=== PATIENT | male | born 1960 | race Caucasian/White ===

== ENCOUNTER 2017-03-17 11:52 | Emergency (ER) | payer OTHER ==
[~2017-03-17] VITALS: Ht 193 cm; Wt 99.8 kg
[2017-03-17 11:52] VITALS: BP_SYST 71
--- NOTE | 2017-03-17 11:52 | NUR ---
IMMEDIATELY BROUGHT BACK TO BED #5 AND TRIAGED. REPORT GIVEN TO MCKAYLA AND DR BROOKS
--- NOTE | 2017-03-17 11:55 | NUR ---
ER at bedside examining patient.
--- NOTE | 2017-03-17 11:58 | NUR ---
PT REPORTS SI PRIOR TO ED ARRIVAL.PT AFTER SPEAKING W/ PT ADMITS TO SEEKING PSYCHIATRIC HELP AT [facility].PT H/O BIPOLAR DEPRESSION. PT IS HOWVER HYPOTENSIVE AND TACHYCARDIAC. PT PLACED ON MONITOR IV STARTED AND FLUID STARTED.
[2017-03-17] MEDS ORDERED: NACL 0.9% 1,000 ML IV ONE ×2 (12:00→12:45)
[2017-03-17 12:26] LABS: BASOPHILS # (AUTO) 0.1 K/uL (0.0-0.2); BASOPHILS % (AUTO) 1.7 % (0.0-2.0); EOSINOPHILS # (AUTO) 0.1 K/uL (0.0-0.4); EOSINOPHILS % (AUTO) 1.3 % (0.0-4.0); HEMATOCRIT 41.8 % (36-54); HEMOGLOBIN 13.9 g/dL (14.0-18.0); LYMPHOCYTES # (AUTO) 1.5 K/uL (1.0-5.5); LYMPHOCYTES % (AUTO) 17.4 % (20.5-51.5); MEAN CORPUSCULAR HEMOGLOBIN 28 pg (27-31); MEAN CORPUSCULAR HGB CONC 33 % (32-36); MEAN CORPUSCULAR VOLUME 85 fL (79.0-98.0); MONOCYTES # (AUTO) 0.5 K/uL (0.0-1.0); MONOCYTES % (AUTO) 6.2 % (1.7-9.3); NEUTROPHILS # (AUTO) 6.4 K/uL (1.8-7.7); NEUTROPHILS % (AUTO) 73.4 % (40.0-70.0); PLATELET COUNT (AUTO) 313 K/uL (130-430); RED BLOOD CELL COUNT(AUTO) 4.95 MIL/uL (4.2-6.2); RED CELL DISTRIBUTION WIDTH 12.6 % (9.0-15.0); WHITE BLOOD COUNT (AUTO) 8.6 K/uL (4.8-10.8)
[2017-03-17 12:29] LABS: CALCIUM 9.3 mg/dL (8.4-11.0); CREATININE 1.68 mg/dL (0.55-1.30); POTASSIUM 3.8 mmol/L (3.5-5.1)
--- NOTE | 2017-03-17 12:30 | NUR ---
PT REPORTS DIZZINESS RESOLVED AND PT REQUIRING MEAL TRAY
[2017-03-17 12:34] LABS: ALBUMIN 4.4 g/dL (3.4-4.8); TOTAL BILIRUBIN 0.5 mg/dL (0.0-1.0); TOTAL PROTEIN, SERUM 7.3 g/dL (6.4-8.3)
--- NOTE | 2017-03-17 13:30 | NUR ---
PT GIVEN SAND AND JUICE TOLERATED WELL.
--- NOTE | 2017-03-17 14:30 | NUR ---
PT TOLERATED LUCH TRAY X 2. PT SLEEPING EASILY AROUSABLE.PT COOPERATIVE WHILE AWAKE.CONTINUING TO MONITOR
[2017-03-17] MEDS ORDERED: LORazepam 2 MG/ML VIAL (FOR ER USE) IVP ONE (16:15)
--- NOTE | 2017-03-17 17:00 | NUR ---
PT MED ICATED FOR ANXIETY.PT TOLERTAED WELL.
--- NOTE | 2017-03-17 17:55 | NUR ---
Patient to be transferred to [facility]. Is being transferred due to higher level of care. Receiving facility has accepting physician and available space. ER physician has signed transfer form. Patient or responsible green party has agreed to transfer and signed form. Patient belongings inventoried and will be sent with patient. Copy of nursing notes, lab reports, EKG, Physicians Orders and X-rays to be sent with patient. Report called to MARVA at receiving facility. Receiving physician is . [facility] been [facility] for transfer. [facility] FOR TRANSFER.
[2017-03-17 18:00] VITALS: BP_SYST 128
== END 2017-03-17 18:00 ==
LOC: SED 11:52
DX: F32.9 Major depressive disorder, single episode, unspecified (principal); R45.851 Suicidal ideations; E86.0 Dehydration; F10.10 Alcohol abuse, uncomplicated; I10 Essential (primary) hypertension; F41.9 Anxiety disorder, unspecified; Y90.3 Blood alcohol level of 60-79 mg/100 ml; Z96.642 Presence of left artificial hip joint; Z51.81 Encounter for therapeutic drug level monitoring
CPT/HCPCS: 36415; 71010; 80053; 83605; 84484; 85025; 85610; 85730; 87040; 93005; 96361; 96374; 99285; G0481; G0482; J2060; J7030

== ENCOUNTER 2017-05-07 01:53 | Emergency (ER) | payer OTHER ==
[~2017-05-07] VITALS: Ht 193 cm; Wt 99.8 kg
[2017-05-07 01:55] VITALS: BP_SYST 150
[2017-05-07] MEDS ORDERED: NACL 0.9% 1,000 ML IV ONE (01:57)
[2017-05-07] MEDS ORDERED: ONDANSETRON HCL 4 MG/2 ML VIAL IVP ONE (02:00)
[2017-05-07 03:08] LABS: CALCIUM 9.3 mg/dL (8.4-11.0); CREATININE 1.29 mg/dL (0.55-1.30); POTASSIUM 3.9 mmol/L (3.5-5.1)
[2017-05-07 03:10] LABS: BASOPHILS % (AUTO) 1.4 % (0.0-2.0); EOSINOPHILS # (AUTO) 0.1 K/uL (0.0-0.4); EOSINOPHILS % (AUTO) 1.2 % (0.0-4.0); HEMATOCRIT 42.2 % (36-54); HEMOGLOBIN 13.8 g/dL (14.0-18.0); LYMPHOCYTES # (AUTO) 2.4 K/uL (1.0-5.5); MEAN CORPUSCULAR HEMOGLOBIN 27 pg (27-31); MEAN CORPUSCULAR HGB CONC 33 % (32-36); MEAN CORPUSCULAR VOLUME 84 fL (79.0-98.0); MONOCYTES # (AUTO) 0.6 K/uL (0.0-1.0); NEUTROPHILS # (AUTO) 6.7 K/uL (1.8-7.7); NEUTROPHILS % (AUTO) 67.4 % (40.0-70.0); PLATELET COUNT (AUTO) 333 K/uL (130-430); RED BLOOD CELL COUNT(AUTO) 5.05 MIL/uL (4.2-6.2); WHITE BLOOD COUNT (AUTO) 9.9 K/uL (4.8-10.8)
[2017-05-07 03:11] LABS: BASOPHILS # (AUTO) 0.1 K/uL (0.0-0.2)
[2017-05-07 03:12] LABS: ALBUMIN 4.5 g/dL (3.4-4.8); TOTAL BILIRUBIN 0.4 mg/dL (0.0-1.0); TOTAL PROTEIN, SERUM 7.7 g/dL (6.4-8.3)
[2017-05-07 03:43] LABS: BILIRUBIN,URINE NEGATIVE (NEGATIVE); BLOOD, URINE NEGATIVE (NEGATIVE); CLARITY/URINE CLEAR (CLEAR); COLOR,URINE YELLOW (YELLOW); GLUCOSE,URINE NEGATIVE (NEGATIVE); KETONES,URINE NEGATIVE (NEGATIVE); LEUKOCYTE ESTERASE ,URINE NEGATIVE (NEGATIVE); NITRITE, URINE NEGATIVE (NEGATIVE); PH,URINE 7.5 (5.0-8.0); PROTEIN URINE NEGATIVE (NEGATIVE); UROBILINOGEN,URINE 0.2 (0.2-1.0)
[2017-05-07 04:15] VITALS: BP_SYST 136
== END 2017-05-07 04:15 | disposition home or self-care (01) ==
LOC: SED 01:53
DX: T67.5XXA Heat exhaustion, unspecified, initial encounter (principal); E86.0 Dehydration; F41.9 Anxiety disorder, unspecified; I10 Essential (primary) hypertension; X58.XXXA Exposure to other specified factors, initial encounter; Y93.01 Activity, walking, marching and hiking
CPT/HCPCS: 36415; 80053; 81003; 82150; 82550; 83690; 84484; 85025; 85610; 85730; 96374; 99284; J2405; J7030

== ENCOUNTER 2017-06-11 02:38 | Emergency (ER) | payer OTHER ==
[~2017-06-11] VITALS: Ht 193 cm; Wt 96.2 kg
[2017-06-11 02:38] VITALS: BP_SYST 164
[2017-06-11 04:05] LABS: BILIRUBIN,URINE NEGATIVE (NEGATIVE); BLOOD, URINE NEGATIVE (NEGATIVE); CLARITY/URINE CLEAR (CLEAR); COLOR,URINE YELLOW (YELLOW); GLUCOSE,URINE NEGATIVE (NEGATIVE); KETONES,URINE TRACE (NEGATIVE); LEUKOCYTE ESTERASE ,URINE NEGATIVE (NEGATIVE); NITRITE, URINE NEGATIVE (NEGATIVE); PH,URINE 5.5 (5.0-8.0); PROTEIN URINE NEGATIVE (NEGATIVE); UROBILINOGEN,URINE 0.2 (0.2-1.0)
[2017-06-11 04:13] LABS: HEMOGLOBIN 15.6 g/dL (14.0-18.0); RED BLOOD CELL COUNT(AUTO) 5.49 MIL/uL (4.2-6.2); WHITE BLOOD COUNT (AUTO) 7.8 K/uL (4.8-10.8)
[2017-06-11 04:14] LABS: HEMATOCRIT 47.1 % (36-54); MEAN CORPUSCULAR HEMOGLOBIN 28 pg (27-31); MEAN CORPUSCULAR HGB CONC 33 % (32-36); MEAN CORPUSCULAR VOLUME 86 fL (79.0-98.0); NEUTROPHILS % (AUTO) 74.1 % (40.0-70.0); PLATELET COUNT (AUTO) 303 K/uL (130-430); RED CELL DISTRIBUTION WIDTH 13.7 % (9.0-15.0)
[2017-06-11 04:15] LABS: BASOPHILS % (AUTO) 0.3 % (0.0-2.0); EOSINOPHILS # (AUTO) 0.1 K/uL (0.0-0.4); EOSINOPHILS % (AUTO) 0.7 % (0.0-4.0); LYMPHOCYTES # (AUTO) 1.6 K/uL (1.0-5.5); LYMPHOCYTES % (AUTO) 20.9 % (20.5-51.5); MONOCYTES # (AUTO) 0.3 K/uL (0.0-1.0); NEUTROPHILS # (AUTO) 5.8 K/uL (1.8-7.7)
[2017-06-11 04:15] LABS: ANION GAP 8 (5-15); CALCIUM 8.4 mg/dL (8.4-11.0); CHLORIDE 106 mmol/L (98-107); CREATININE 0.92 mg/dL (0.55-1.30); GLUCOSE 98 mg/dL (70-99); POTASSIUM 4.1 mmol/L (3.5-5.1); SODIUM SERUM 144 mmol/L (136-145); UREA NITROGEN, BLOOD 16 mg/dL (8-21)
[2017-06-11 04:19] LABS: ALANINE AMINOTRANSFERASE 30 U/L (12-78); ALBUMIN 4.2 g/dL (3.4-4.8); ALCOHOL, BLOOD 193 mg/dL (<10); ASPARTATE AMINOTRANSFERASE 21 U/L (10-37); CREATINE KINASE, TOTAL 130 U/L (39-308); TOTAL BILIRUBIN 0.3 mg/dL (0.0-1.0); TOTAL PROTEIN, SERUM 7.8 g/dL (6.4-8.3)
[2017-06-11 04:19] LABS: BARBITURATE, URINE NEGATIVE (NEG <=200); BENZODIAZEPINE, URINE NEGATIVE (NEG <=150); CANNABINOID, URINE NEGATIVE (NEG <=50); COCAINE, URINE NEGATIVE (NEG <=150); METHAMPHETAMINES SCREEN,URINE NEGATIVE (NEG <=500); OPIATE, URINE NEGATIVE (NEG <=100); PHENCYCLIDINE SCREEN,URINE NEGATIVE (NEG <=25); UR TRICYCLIC ANTIDEPRESSANTS POSITIVE (NEG <=300); URINE AMPHETAMINE POSITIVE (NEG <=500); URINE METHADONE NEGATIVE (NEG <=200); URINE OXYCODONE SCREEN NEGATIVE (NEG <=100); URINE PROPOXYPHENE SCREEN NEGATIVE (NEG <=300)
[2017-06-11 04:20] LABS: PROTHROMBIN TIME 10.9 SECS (9.5-12.5)
[2017-06-11 04:25] LABS: ACETAMINOPHEN < 1 ug/mL (1-30); GFR AFRICAN AMERICAN 109 mL/min (>90)
[2017-06-11 04:34] LABS: SALICYLATE 3 mg/dL (3-30)
[2017-06-11] MEDS ORDERED: ONDANSETRON HCL 4 MG/2 ML VIAL IVP ONE (06:45)
[2017-06-11] MEDS ORDERED: ALPRAZolam 0.25 MG TABLET PO ONE ×2 (11:15→19:45)
[2017-06-12 11:40] VITALS: BP_SYST 140
== END 2017-06-12 11:40 ==
LOC: SED 02:38
DX: F32.9 Major depressive disorder, single episode, unspecified (principal); R45.851 Suicidal ideations; F10.129 Alcohol abuse with intoxication, unspecified; F19.10 Other psychoactive substance abuse, uncomplicated; F41.9 Anxiety disorder, unspecified; I10 Essential (primary) hypertension; Z59.0 Homelessness; Z96.642 Presence of left artificial hip joint
CPT/HCPCS: 36415; 80053; 80307; 81003; 82550; 84484; 85025; 85610; 85730; 96374; 99285; G0480; G0481; G0482; J2405

== ENCOUNTER 2017-06-23 17:22 | Emergency (ER) | payer OTHER ==
[~2017-06-23] VITALS: Ht 175.3 cm; Wt 99.8 kg
--- NOTE | 2017-06-23 17:24 | NUR ---
Patient to ER bed 04 to gown for evaluation. Side rails up. Report given to Tunde
[2017-06-23 17:25] VITALS: BP_SYST 117
--- NOTE | 2017-06-23 17:33 | NUR ---
Patient,awake,alert and oriented x 4, brought in by ambulance for ETOH intoxication from [facility]. Upon arrival, patient calm and cooperative, steady gait, complaining of ETOH intoxication states, "I was discharged from [facility] this morning, missed my AA meeting and drank 1L of vodka." He then states he walked himself to the [facility] after drinking because he didn't feel right and guilty about relapsing. The patient denies SI, HI and AVH at this time. No nausea, vomitting and diarrhea at this time. No other complaints/injuries per patient, none noted.
--- NOTE | 2017-06-23 17:38 | NUR ---
Dr. Gonsalez at bedside examining patient. Updated on patient condition.
[2017-06-23 17:42] LABS: BASOPHILS % (AUTO) 0.6 % (0.0-2.0); EOSINOPHILS # (AUTO) 0.1 K/uL (0.0-0.4); EOSINOPHILS % (AUTO) 0.9 % (0.0-4.0); HEMATOCRIT 39.8 % (36-54); HEMOGLOBIN 13.3 g/dL (14.0-18.0); LYMPHOCYTES # (AUTO) 1.8 K/uL (1.0-5.5); LYMPHOCYTES % (AUTO) 22.5 % (20.5-51.5); MEAN CORPUSCULAR HEMOGLOBIN 29 pg (27-31); MEAN CORPUSCULAR HGB CONC 34 % (32-36); MEAN CORPUSCULAR VOLUME 86 fL (79.0-98.0); MONOCYTES # (AUTO) 0.5 K/uL (0.0-1.0); MONOCYTES % (AUTO) 5.7 % (1.7-9.3); NEUTROPHILS # (AUTO) 5.8 K/uL (1.8-7.7); NEUTROPHILS % (AUTO) 70.3 % (40.0-70.0); PLATELET COUNT (AUTO) 310 K/uL (130-430); RED BLOOD CELL COUNT(AUTO) 4.63 MIL/uL (4.2-6.2); RED CELL DISTRIBUTION WIDTH 13.7 % (9.0-15.0); WHITE BLOOD COUNT (AUTO) 8.2 K/uL (4.8-10.8)
[2017-06-23 17:56] LABS: CALCIUM 8.5 mg/dL (8.4-11.0); CREATININE 0.8 mg/dL (0.55-1.30); POTASSIUM 3.8 mmol/L (3.5-5.1)
[2017-06-23 18:00] LABS: TOTAL BILIRUBIN 0.2 mg/dL (0.0-1.0); TOTAL PROTEIN, SERUM 7.5 g/dL (6.4-8.3)
--- NOTE | 2017-06-23 18:18 | NUR ---
Pt transferred to room 05
--- NOTE | 2017-06-23 18:20 | NUR ---
Patient resting quietly. No acute distress noted. Vital signs within normal range.
--- NOTE | 2017-06-23 18:43 | NUR ---
Patient eloped as witness by staff.Patient ambulatory, no signs of distress, vss, chills, fever, or shortness of breath. Patient denied SI, HI and AVH.
[2017-06-23 18:45] VITALS: BP_SYST 115
== END 2017-06-23 18:45 | disposition left against medical advice (07) ==
LOC: SED 17:22
DX: F10.129 Alcohol abuse with intoxication, unspecified (principal); F43.10 Post-traumatic stress disorder, unspecified; F32.9 Major depressive disorder, single episode, unspecified; I10 Essential (primary) hypertension; F41.9 Anxiety disorder, unspecified; Z53.20 Procedure and treatment not carried out because of patient's decision for unspecified reasons
CPT/HCPCS: 36415; 80053; 85025; 99284; G0482

== ENCOUNTER 2017-08-15 14:17 | Inpatient (IN) | payer OTHER ==
[~2017-08-15] VITALS: Ht 190.5 cm; Wt 94.3 kg
[2017-08-15 14:22] VITALS: BP_SYST 103
[2017-08-15 14:53] LABS: HEMATOCRIT 33.7 % (36-54); HEMOGLOBIN 11.5 g/dL (14.0-18.0); MEAN CORPUSCULAR HEMOGLOBIN 29 pg (27-31); MEAN CORPUSCULAR HGB CONC 34 % (32-36); MEAN CORPUSCULAR VOLUME 86 fL (79.0-98.0); PLATELET COUNT (AUTO) 353 K/uL (130-430); RED BLOOD CELL COUNT(AUTO) 3.93 MIL/uL (4.2-6.2); RED CELL DISTRIBUTION WIDTH 13.8 % (9.0-15.0); WHITE BLOOD COUNT (AUTO) 25.4 K/uL (4.8-10.8)
[2017-08-15 14:57] LABS: ANION GAP 12 (5-15); CALCIUM 9.2 mg/dL (8.4-11.0); CHLORIDE 95 mmol/L (98-107); CREATININE 1.15 mg/dL (0.55-1.30); GFR AFRICAN AMERICAN 84 mL/min (>90); GLUCOSE 103 mg/dL (70-99); POTASSIUM 4.1 mmol/L (3.5-5.1); SODIUM SERUM 129 mmol/L (136-145); UREA NITROGEN, BLOOD 13 mg/dL (8-21)
[2017-08-15 15:01] LABS: ALANINE AMINOTRANSFERASE 25 U/L (12-78); ALBUMIN 3.4 g/dL (3.4-4.8); ASPARTATE AMINOTRANSFERASE 15 U/L (10-37); TOTAL BILIRUBIN 0.7 mg/dL (0.0-1.0)
[2017-08-15 15:03] LABS: ALCOHOL, BLOOD < 3 mg/dL (<10)
[2017-08-15 15:07] LABS: BILIRUBIN,URINE NEGATIVE (NEGATIVE); BLOOD, URINE 2+ (NEGATIVE); CLARITY/URINE SL CLOUDY (CLEAR); COLOR,URINE YELLOW (YELLOW); GLUCOSE,URINE NEGATIVE (NEGATIVE); KETONES,URINE NEGATIVE (NEGATIVE); LEUKOCYTE ESTERASE ,URINE 3+ (NEGATIVE); NITRITE, URINE POSITIVE (NEGATIVE); PROTEIN URINE 1+ (NEGATIVE)
[2017-08-15 15:13] LABS: BAND % (MANUAL) 8 % (0-6); BASOPHILS % (MANUAL) 0 % (0-2); EOSINOPHILS % (MANUAL) 0 % (0-7); LYMPHOCYTES % (MANUAL) 2 % (20-46); MONOCYTES % (MANUAL) 6 % (0-11)
[2017-08-15] MEDS ORDERED: IBUPROFEN 800 MG TABLET PO ONE (15:15)
[2017-08-15 15:17] LABS: RBC,URINE 20-50 /HPF (0-3)
[2017-08-15 15:18] LABS: BACTERIA,URINE MANY /HPF (None Seen); WBC,URINE >100 /HPF (0-3)
[2017-08-15 15:24] LABS: BARBITURATE, URINE NEGATIVE (NEG <=200); BENZODIAZEPINE, URINE POSITIVE (NEG <=150); COCAINE, URINE NEGATIVE (NEG <=150); METHAMPHETAMINES SCREEN,URINE POSITIVE (NEG <=500); URINE AMPHETAMINE POSITIVE (NEG <=500); URINE METHADONE NEGATIVE (NEG <=200)
[2017-08-15 15:25] LABS: CANNABINOID, URINE NEGATIVE (NEG <=50); OPIATE, URINE NEGATIVE (NEG <=100); PHENCYCLIDINE SCREEN,URINE NEGATIVE (NEG <=25); UR TRICYCLIC ANTIDEPRESSANTS NEGATIVE (NEG <=300); URINE OXYCODONE SCREEN NEGATIVE (NEG <=100); URINE PROPOXYPHENE SCREEN NEGATIVE (NEG <=300)
[2017-08-15] MEDS ORDERED: NACL 0.9% 1,000 ML IV ONE (16:00)
[2017-08-15] MEDS ORDERED: BENZ1TAB7 PO (16:27)
[2017-08-15] MEDS ORDERED: TRAZ-126 PO (16:27)
[2017-08-15] MEDS ORDERED: BUSP5TAB3 PO (16:27)
[2017-08-15] MEDS ORDERED: PIPERACILLIN/TAZO 4.5GM/DEX-IS 100 ML IV SCH (17:00)
[2017-08-15] MEDS ORDERED: ONDANSETRON HCL 4 MG/2 ML VIAL IVP PRN (17:00)
[2017-08-15] MEDS ORDERED: KETOROLAC TROMETHAMINE 15 MG VIAL IVP PRN (17:00)
[2017-08-15] MEDS ORDERED: LORazepam 1 MG TABLET PO PRN (17:00)
[2017-08-15 17:11] VITALS: BP_SYST 107
[2017-08-15] MEDS: NACL 0.9% 1,000 ML IV SCH (18:04)
[2017-08-15] MEDS: metroNIDAZOLE 500 mg/NS 100 ML IV SCH ×2 (18:05→22:50)
[2017-08-15] MEDS: traZODone HCL 50 MG TABLET (DESYREL) PO SCH (21:16)
[2017-08-16 00:22] VITALS: BP_SYST 116
[2017-08-16 04:15] VITALS: BP_SYST 108
[2017-08-16] MEDS: metroNIDAZOLE 500 mg/NS 100 ML IV SCH ×3 (05:33→21:17)
[2017-08-16] MEDS: NACL 0.9% 1,000 ML IV SCH ×3 (05:41→21:36)
[2017-08-16] MEDS: HYDROcodone/ACETAMIN 5-325 MG TAB (NORCO/ VICODIN) PO PRN ×2 (07:34→21:34)
[2017-08-16 08:00] VITALS: BP_SYST 125
[2017-08-16 08:02] LABS: FREE T4 (FREE THYROXINE) 1.1 ng/dl (0.8-1.5)
[2017-08-16 08:13] LABS: THYROID STIMULATING HORMONE 0.3 uIu/mL (0.34-4.82)
[2017-08-16 08:14] LABS: TOTAL IRON BIND. CAPACITY 249 ug/dL (250-450)
[2017-08-16] MEDS: busPIRone HCL 5 MG TABLET PO SCH (10:09)
[2017-08-16] MEDS: BENZTROPINE MESYLATE 1 MG TABLET PO SCH (10:09)
[2017-08-16 12:19] LABS: % FREE PSA 3.6 % (.); FREE PSA 0.1 ng/mL; PROSTATE SPECIFIC AG TOTAL 2.8 ng/mL (0.0-4.0)
[2017-08-16 12:40] VITALS: BP_SYST 121
[2017-08-16 16:24] VITALS: BP_SYST 108
[2017-08-16] MEDS: CHOLECALCIFEROL (VITAMIN D3) 2,000 UNIT TABLET PO SCH ×2 (17:27→21:33)
[2017-08-16] MEDS: MULTIVITS,CA,MINERALS/IRON/FA 1 TABLET PO SCH ×2 (17:27→21:33)
[2017-08-16 20:00] VITALS: BP_SYST 150
[2017-08-16] MEDS: traZODone HCL 50 MG TABLET (DESYREL) PO SCH (21:33)
[2017-08-17 01:14] VITALS: BP_SYST 118
[2017-08-17] MEDS: NACL 0.9% 1,000 ML IV SCH ×3 (04:33→20:03)
[2017-08-17 04:41] VITALS: BP_SYST 131
[2017-08-17 06:37] LABS: BASOPHILS % (AUTO) 0.3 % (0.0-2.0); EOSINOPHILS # (AUTO) 0.2 K/uL (0.0-0.4); EOSINOPHILS % (AUTO) 1.6 % (0.0-4.0); HEMATOCRIT 29.9 % (36-54); LYMPHOCYTES # (AUTO) 1.3 K/uL (1.0-5.5); LYMPHOCYTES % (AUTO) 8.8 % (20.5-51.5); MEAN CORPUSCULAR HEMOGLOBIN 29 pg (27-31); MEAN CORPUSCULAR HGB CONC 33 % (32-36); MEAN CORPUSCULAR VOLUME 87 fL (79.0-98.0); MONOCYTES # (AUTO) 0.8 K/uL (0.0-1.0); MONOCYTES % (AUTO) 5.4 % (1.7-9.3); NEUTROPHILS # (AUTO) 12.2 K/uL (1.8-7.7); PLATELET COUNT (AUTO) 238 K/uL (130-430); RED BLOOD CELL COUNT(AUTO) 3.46 MIL/uL (4.2-6.2); WHITE BLOOD COUNT (AUTO) 14.5 K/uL (4.8-10.8)
[2017-08-17 07:02] LABS: CALCIUM 9.1 mg/dL (8.4-11.0); CREATININE 0.84 mg/dL (0.55-1.30); POTASSIUM 3.5 mmol/L (3.5-5.1)
[2017-08-17] MEDS: metroNIDAZOLE 500 mg/NS 100 ML IV SCH ×3 (07:05→21:05)
[2017-08-17 08:00] VITALS: BP_SYST 124
[2017-08-17] MEDS: HYDROcodone/ACETAMIN 5-325 MG TAB (NORCO/ VICODIN) PO PRN ×2 (08:59→21:14)
[2017-08-17 09:01] LABS: NEUTROPHILS % (AUTO) 83.9 % (40.0-70.0)
[2017-08-17] MEDS: busPIRone HCL 5 MG TABLET PO SCH (09:20)
[2017-08-17] MEDS: MULTIVITS,CA,MINERALS/IRON/FA 1 TABLET PO SCH ×2 (09:20→21:05)
[2017-08-17] MEDS: CHOLECALCIFEROL (VITAMIN D3) 2,000 UNIT TABLET PO SCH ×2 (09:20→21:05)
[2017-08-17] MEDS: BENZTROPINE MESYLATE 1 MG TABLET PO SCH (09:20)
[2017-08-17] MEDS: SOD FERRIC GLUC COMPLEX/SUC 125 MG in NS 100 ML IV SCH (12:09)
[2017-08-17 12:28] VITALS: BP_SYST 133
[2017-08-17 16:08] VITALS: BP_SYST 146
[2017-08-17 20:00] VITALS: BP_SYST 155
[2017-08-17] MEDS: traZODone HCL 50 MG TABLET (DESYREL) PO SCH (21:05)
[2017-08-18] VITALS (7 sets, daily range): BP systolic 122–152
[2017-08-18] MEDS: metroNIDAZOLE 500 mg/NS 100 ML IV SCH ×3 (05:10→21:12)
[2017-08-18] MEDS: NACL 0.9% 1,000 ML IV SCH ×2 (05:11→21:13)
[2017-08-18] MEDS: busPIRone HCL 5 MG TABLET PO SCH (08:19)
[2017-08-18] MEDS: CHOLECALCIFEROL (VITAMIN D3) 2,000 UNIT TABLET PO SCH ×2 (08:19→21:12)
[2017-08-18] MEDS: MULTIVITS,CA,MINERALS/IRON/FA 1 TABLET PO SCH ×2 (08:19→21:12)
[2017-08-18] MEDS: BENZTROPINE MESYLATE 1 MG TABLET PO SCH (08:19)
[2017-08-18] MEDS: HYDROcodone/ACETAMIN 5-325 MG TAB (NORCO/ VICODIN) PO PRN ×2 (08:27→21:13)
[2017-08-18] MEDS: SOD FERRIC GLUC COMPLEX/SUC 125 MG in NS 100 ML IV SCH (11:00)
[2017-08-18] MEDS: traZODone HCL 50 MG TABLET (DESYREL) PO SCH (21:12)
[2017-08-18 23:23] LABS: CHLAMYDIA TRACHOMATIS NAA Negative (Negative); NEISSERIA GONORRHOEAE NAA Negative (Negative)
[2017-08-19 04:00] VITALS: BP_SYST 152
[2017-08-19 06:15] LABS: FOLATE (FOLIC ACID) 8.7 ng/mL (>3.0)
[2017-08-19] MEDS: metroNIDAZOLE 500 mg/NS 100 ML IV SCH ×2 (06:55→14:15)
[2017-08-19 07:48] LABS: BASOPHILS % (AUTO) 0.5 % (0.0-2.0); EOSINOPHILS # (AUTO) 0.2 K/uL (0.0-0.4); EOSINOPHILS % (AUTO) 2.3 % (0.0-4.0); HEMATOCRIT 31.3 % (36-54); HEMOGLOBIN 10.2 g/dL (14.0-18.0); LYMPHOCYTES # (AUTO) 1.5 K/uL (1.0-5.5); LYMPHOCYTES % (AUTO) 17.6 % (20.5-51.5); MEAN CORPUSCULAR HEMOGLOBIN 28 pg (27-31); MEAN CORPUSCULAR HGB CONC 33 % (32-36); MEAN CORPUSCULAR VOLUME 87 fL (79.0-98.0); MONOCYTES # (AUTO) 1.1 K/uL (0.0-1.0); MONOCYTES % (AUTO) 12.6 % (1.7-9.3); NEUTROPHILS # (AUTO) 5.7 K/uL (1.8-7.7); PLATELET COUNT (AUTO) 314 K/uL (130-430); RED CELL DISTRIBUTION WIDTH 14.3 % (9.0-15.0); WHITE BLOOD COUNT (AUTO) 8.5 K/uL (4.8-10.8)
[2017-08-19 08:16] LABS: ALBUMIN 2.6 g/dL (3.4-4.8); CALCIUM 9.3 mg/dL (8.4-11.0); CREATININE 0.91 mg/dL (0.55-1.30); POTASSIUM 4.1 mmol/L (3.5-5.1); TOTAL BILIRUBIN 0.2 mg/dL (0.0-1.0)
[2017-08-19 08:31] VITALS: BP_SYST 147
[2017-08-19] MEDS: NACL 0.9% 1,000 ML IV SCH ×2 (08:46→21:11)
[2017-08-19] MEDS: MULTIVITS,CA,MINERALS/IRON/FA 1 TABLET PO SCH ×2 (08:47→21:11)
[2017-08-19] MEDS: CHOLECALCIFEROL (VITAMIN D3) 2,000 UNIT TABLET PO SCH ×2 (08:47→21:11)
[2017-08-19] MEDS: BENZTROPINE MESYLATE 1 MG TABLET PO SCH (08:47)
[2017-08-19] MEDS: busPIRone HCL 5 MG TABLET PO SCH (08:47)
[2017-08-19] MEDS: HYDROcodone/ACETAMIN 5-325 MG TAB (NORCO/ VICODIN) PO PRN ×2 (08:48→21:12)
[2017-08-19] MEDS: SOD FERRIC GLUC COMPLEX/SUC 125 MG in NS 100 ML IV SCH (10:47)
[2017-08-19 11:37] VITALS: BP_SYST 154
[2017-08-19 12:21] LABS: HEMOGLOBIN A1C 5.7 % (4.8-5.6)
[2017-08-19 15:44] VITALS: BP_SYST 150
[2017-08-19] MEDS ORDERED: CYANOCOBALAMIN 1000 MCG/ML VIAL IM ONE (15:45)
[2017-08-19] MEDS: DOXYCYCLINE HYCLATE 100 MG CAPSULE PO SCH (21:11)
[2017-08-19] MEDS: traZODone HCL 50 MG TABLET (DESYREL) PO SCH (21:13)
[2017-08-19 23:56] VITALS: BP_SYST 158
[2017-08-20 03:29] VITALS: BP_SYST 160
[2017-08-20] MEDS: NACL 0.9% 1,000 ML IV SCH ×2 (05:45→16:13)
[2017-08-20 06:07] VITALS: BP_SYST 157
[2017-08-20 08:20] VITALS: BP_SYST 154
[2017-08-20] MEDS: MULTIVITS,CA,MINERALS/IRON/FA 1 TABLET PO SCH ×2 (08:34→20:46)
[2017-08-20] MEDS: busPIRone HCL 5 MG TABLET PO SCH (08:34)
[2017-08-20] MEDS: CHOLECALCIFEROL (VITAMIN D3) 2,000 UNIT TABLET PO SCH ×2 (08:34→20:46)
[2017-08-20] MEDS: DOXYCYCLINE HYCLATE 100 MG CAPSULE PO SCH ×2 (08:34→20:46)
[2017-08-20] MEDS: BENZTROPINE MESYLATE 1 MG TABLET PO SCH (08:34)
[2017-08-20] MEDS ORDERED: IBUPROFEN 600 MG TABLET PO PRN (09:00)
[2017-08-20 11:30] VITALS: BP_SYST 149
[2017-08-20] MEDS: LEVOFLOXACIN 500 MG/D5W 100 ML IV SCH (14:49)
[2017-08-20 16:39] VITALS: BP_SYST 166
[2017-08-20] MEDS: HYDROcodone/ACETAMIN 5-325 MG TAB (NORCO/ VICODIN) PO PRN ×2 (17:43→23:16)
[2017-08-20 20:00] VITALS: BP_SYST 152
[2017-08-20] MEDS: traZODone HCL 50 MG TABLET (DESYREL) PO SCH (20:46)
[2017-08-21] VITALS (7 sets, daily range): BP systolic 141–160
[2017-08-21] MEDS: NACL 0.9% 1,000 ML IV SCH ×2 (02:22→13:05)
[2017-08-21 07:40] LABS: BASOPHILS % (AUTO) 0.4 % (0.0-2.0); EOSINOPHILS # (AUTO) 0.2 K/uL (0.0-0.4); EOSINOPHILS % (AUTO) 2.7 % (0.0-4.0); HEMATOCRIT 32.3 % (36-54); HEMOGLOBIN 10.6 g/dL (14.0-18.0); LYMPHOCYTES # (AUTO) 1.8 K/uL (1.0-5.5); LYMPHOCYTES % (AUTO) 21.9 % (20.5-51.5); MEAN CORPUSCULAR HEMOGLOBIN 29 pg (27-31); MEAN CORPUSCULAR HGB CONC 33 % (32-36); MEAN CORPUSCULAR VOLUME 87 fL (79.0-98.0); MONOCYTES # (AUTO) 1.1 K/uL (0.0-1.0); MONOCYTES % (AUTO) 13.4 % (1.7-9.3); NEUTROPHILS % (AUTO) 61.6 % (40.0-70.0); PLATELET COUNT (AUTO) 268 K/uL (130-430); RED CELL DISTRIBUTION WIDTH 14.5 % (9.0-15.0); WHITE BLOOD COUNT (AUTO) 8.1 K/uL (4.8-10.8)
[2017-08-21 08:28] LABS: POTASSIUM 4.2 mmol/L (3.5-5.1)
[2017-08-21 08:29] LABS: CREATININE 0.92 mg/dL (0.55-1.30)
[2017-08-21] MEDS: DOXYCYCLINE HYCLATE 100 MG CAPSULE PO SCH ×2 (09:01→21:54)
[2017-08-21] MEDS: CHOLECALCIFEROL (VITAMIN D3) 2,000 UNIT TABLET PO SCH ×2 (09:01→21:54)
[2017-08-21] MEDS: busPIRone HCL 5 MG TABLET PO SCH (09:01)
[2017-08-21] MEDS: MULTIVITS,CA,MINERALS/IRON/FA 1 TABLET PO SCH ×2 (09:01→21:54)
[2017-08-21] MEDS: BENZTROPINE MESYLATE 1 MG TABLET PO SCH (09:01)
[2017-08-21 10:49] LABS: ERYTHROCYTE SEDIMENTATION RATE 78 MM/HR (0-15)
[2017-08-21] MEDS ORDERED: CYANOCOBALAMIN 1000 MCG/ML VIAL IM ONE (11:45)
[2017-08-21] MEDS: LEVOFLOXACIN 500 MG/D5W 100 ML IV SCH (14:25)
[2017-08-21] MEDS ORDERED: traZODone HCL 50 MG TABLET (DESYREL) ONE ×2 (21:41→21:44)
[2017-08-21] MEDS: HYDROcodone/ACETAMIN 5-325 MG TAB (NORCO/ VICODIN) PO PRN (21:54)
[2017-08-21] MEDS: traZODone HCL 50 MG TABLET (DESYREL) PO SCH (22:26)
[2017-08-22 00:58] VITALS: BP_SYST 143
[2017-08-22 04:16] VITALS: BP_SYST 126
[2017-08-22] MEDS: NACL 0.9% 1,000 ML IV SCH ×2 (05:39→08:10)
[2017-08-22] MEDS: CHOLECALCIFEROL (VITAMIN D3) 2,000 UNIT TABLET PO SCH (08:06)
[2017-08-22] MEDS: MULTIVITS,CA,MINERALS/IRON/FA 1 TABLET PO SCH (08:06)
[2017-08-22] MEDS: BENZTROPINE MESYLATE 1 MG TABLET PO SCH (08:06)
[2017-08-22] MEDS: busPIRone HCL 5 MG TABLET PO SCH (08:06)
[2017-08-22] MEDS: DOXYCYCLINE HYCLATE 100 MG CAPSULE PO SCH (08:06)
[2017-08-22] MEDS: HYDROcodone/ACETAMIN 5-325 MG TAB (NORCO/ VICODIN) PO PRN (08:07)
[2017-08-22 08:14] VITALS: BP_SYST 160
[2017-08-22 11:38] VITALS: BP_SYST 138
[2017-08-22] MEDS: LEVOFLOXACIN 500 MG/D5W 100 ML IV SCH (14:47)
[2017-08-22 15:13] VITALS: BP_SYST 149
[2017-08-22] MEDS ORDERED: CYAN100070 PO (16:23)
[2017-08-22] MEDS ORDERED: L.RH1CAP PO (16:23)
[2017-08-22] MEDS ORDERED: DOXY100T2 PO (16:23)
[2017-08-22] MEDS ORDERED: MULT-1117 PO (16:28)
[2017-08-22] MEDS ORDERED: CHOL100024 PO (16:28)
[2017-08-22 16:30] VITALS: BP_SYST 149
== END 2017-08-22 16:24 | disposition home or self-care (01) | DRG 872 ==
LOC: SED 14:17 → SMU 16:00
PROVIDERS: ADMIT Internal Medicine; ATTEND Internal Medicine
DX: A41.9 Sepsis, unspecified organism (principal); E87.1 Hypo-osmolality and hyponatremia; I10 Essential (primary) hypertension; N39.0 Urinary tract infection, site not specified; N45.3 Epididymo-orchitis; B96.20 Unspecified Escherichia coli [E. coli] as the cause of diseases classified elsewhere; F17.200 Nicotine dependence, unspecified, uncomplicated; F32.9 Major depressive disorder, single episode, unspecified; F41.9 Anxiety disorder, unspecified; D64.9 Anemia, unspecified; Z59.0 Homelessness; Z79.899 Other long term (current) drug therapy
CPT/HCPCS: 36415; 76870-TC; 80048; 80053; 80307; 81000-TC; 82607; 82746; 83036; 83540-TC; 83550-TC; 83605; 83735-TC; 84153; 84439; 84443-TC; 85007; 85025; 85027; 85044-TC; 85651-TC; 87040-TC; 87086; 87186-TC; 87491; 87591; 96361; 96365; 99285; G0482; J1885; J1956; J2405; J2916; J3420; J3490; J7030

== ENCOUNTER 2018-01-14 15:07 | Emergency (ER) | payer OTHER ==
[~2018-01-14] VITALS: Ht 193 cm; Wt 90.7 kg
[~2018-01-14 15:07] MED LIST: BENZ1TAB7 PO; BUSP5TAB3 PO; CHOL100024 PO; CYAN100070 PO; DOXY100T2 PO; L.RH1CAP PO; MULT-1117 PO; TRAZ-126 PO
[2018-01-14 15:13] VITALS: BP_SYST 159
[2018-01-14 17:55] LABS: BILIRUBIN,URINE NEGATIVE (NEGATIVE); BLOOD, URINE NEGATIVE (NEGATIVE); CLARITY/URINE CLOUDY (CLEAR); COLOR,URINE YELLOW (YELLOW); GLUCOSE,URINE NEGATIVE (NEGATIVE); KETONES,URINE NEGATIVE (NEGATIVE); LEUKOCYTE ESTERASE ,URINE NEGATIVE (NEGATIVE); NITRITE, URINE NEGATIVE (NEGATIVE); PH,URINE 7.5 (5.0-8.0); PROTEIN URINE NEGATIVE (NEGATIVE); UROBILINOGEN,URINE 0.2 (0.2-1.0)
[2018-01-14 18:06] LABS: BACTERIA,URINE RARE /HPF (None Seen); RBC,URINE 0-3 /HPF (0-3); URINE AMORPHOUS PHOSPHATES 3+ /HPF (None Seen); WBC,URINE 0-3 /HPF (0-3)
[2018-01-14 18:25] LABS: BASOPHILS % (AUTO) 0.3 % (0.0-2.0); EOSINOPHILS # (AUTO) 0.1 K/uL (0.0-0.4); EOSINOPHILS % (AUTO) 1.3 % (0.0-4.0); HEMATOCRIT 38.6 % (36-54); HEMOGLOBIN 12.7 g/dL (14.0-18.0); LYMPHOCYTES # (AUTO) 2.1 K/uL (1.0-5.5); MEAN CORPUSCULAR HEMOGLOBIN 29 pg (27-31); MEAN CORPUSCULAR HGB CONC 33 % (32-36); MEAN CORPUSCULAR VOLUME 87 fL (79.0-98.0); MONOCYTES # (AUTO) 0.5 K/uL (0.0-1.0); MONOCYTES % (AUTO) 6.5 % (1.7-9.3); NEUTROPHILS # (AUTO) 5.6 K/uL (1.8-7.7); NEUTROPHILS % (AUTO) 66.9 % (40.0-70.0); PLATELET COUNT (AUTO) 258 K/uL (130-430); RED BLOOD CELL COUNT(AUTO) 4.44 MIL/uL (4.2-6.2); RED CELL DISTRIBUTION WIDTH 12.7 % (9.0-15.0); WHITE BLOOD COUNT (AUTO) 8.3 K/uL (4.8-10.8)
[2018-01-14 18:29] LABS: CALCIUM 9.3 mg/dL (8.4-11.0); CREATININE 1.06 mg/dL (0.55-1.30); POTASSIUM 4.1 mmol/L (3.5-5.1)
[2018-01-14 18:30] LABS: PROTHROMBIN TIME 10.6 SECS (9.5-12.5)
[2018-01-14 18:36] LABS: TOTAL BILIRUBIN 0.4 mg/dL (0.0-1.0)
[2018-01-14] MEDS ORDERED: OXYCODONE/ACETAMINOPHEN 5-325 TABLET PO ONE (19:00)
[2018-01-14] MEDS ORDERED: CIPROFLOXACIN HCL 500 MG TABLET PO ONE (19:15)
[2018-01-14] MEDS ORDERED: metroNIDAZOLE 500 MG TABLET PO ONE (19:15)
[2018-01-14 19:45] VITALS: BP_SYST 136
== END 2018-01-14 19:45 | disposition home or self-care (01) ==
LOC: SED 15:07
DX: K57.92 Diverticulitis of intestine, part unspecified, without perforation or abscess without bleeding (principal); N32.89 Other specified disorders of bladder; I10 Essential (primary) hypertension; F41.9 Anxiety disorder, unspecified; F17.200 Nicotine dependence, unspecified, uncomplicated; Z71.6 Tobacco abuse counseling; Z96.642 Presence of left artificial hip joint; Z79.899 Other long term (current) drug therapy
CPT/HCPCS: 36415; 80053; 81000-TC; 83690-TC; 85025; 85610-TC; 85730-TC; 99285

== ENCOUNTER 2019-05-13 08:42 | Outpatient (CLI) | payer OTHER ==
[~2019-05-13 08:42] MED LIST changes: -TRAZ-126 PO; +TRAZ-219 PO
== END 2019-05-13 20:55 | disposition home or self-care (01) ==
LOC: SCT 08:42
PROVIDERS: ATTEND Internal Medicine
DX: K44.9 Diaphragmatic hernia without obstruction or gangrene (principal); N20.0 Calculus of kidney
CPT/HCPCS: 71250-TC

== ENCOUNTER 2019-07-13 15:54 | Inpatient (IN) | payer OTHER ==
[~2019-07-13] VITALS: Ht 193 cm; Wt 102.1 kg
[2019-07-13 16:05] VITALS: BP_SYST 126
--- NOTE | 2019-07-13 16:33 | NUR ---
Patient to ER bed 8 to gown for evaluation. Side rails up. Report given to Nicolás ROBERTS.
--- NOTE | 2019-07-13 16:34 | NUR ---
Pt is here for post ORIF of right ankle 8 weeks ago, but was admitted to hospital for 3 weeks due to infection. Per pt, he was released about 1 week ago, having pain 7/10 dull, throbbing to right ankle, scant purulent drainage noted from wound, no open skin. Pt states ankle pain and swelling for 3 days. Pt is allergic to vancomycin. HR elevated, 104, temp 100.1, MD aware.
[2019-07-13 16:46] LABS: BASOPHILS # (AUTO) 0.1 K/uL (0.0-0.2); BASOPHILS % (AUTO) 0.8 % (0.0-2.0); EOSINOPHILS # (AUTO) 1.4 K/uL (0.0-0.4); EOSINOPHILS % (AUTO) 12.4 % (0.0-4.0); HEMATOCRIT 33.6 % (36-54); LYMPHOCYTES # (AUTO) 2.3 K/uL (1.0-5.5); LYMPHOCYTES % (AUTO) 20.5 % (20.5-51.5); MEAN CORPUSCULAR HEMOGLOBIN 28 pg (27-31); MEAN CORPUSCULAR HGB CONC 33 % (32-36); MEAN CORPUSCULAR VOLUME 85 fL (79.0-98.0); MONOCYTES # (AUTO) 0.9 K/uL (0.0-1.0); MONOCYTES % (AUTO) 8.4 % (1.7-9.3); NEUTROPHILS # (AUTO) 6.5 K/uL (1.8-7.7); NEUTROPHILS % (AUTO) 57.9 % (40.0-70.0); PLATELET COUNT (AUTO) 247 K/uL (130-430); RED BLOOD CELL COUNT(AUTO) 3.98 MIL/uL (4.2-6.2); RED CELL DISTRIBUTION WIDTH 16.4 % (9.0-15.0); WHITE BLOOD COUNT (AUTO) 11.3 K/uL (4.8-10.8)
--- NOTE | 2019-07-13 16:54 | NUR ---
xray at bedside.
[2019-07-13 17:05] LABS: CALCIUM 8.9 mg/dL (8.4-11.0); CREATININE 1.19 mg/dL (0.55-1.30); POTASSIUM 3.8 mmol/L (3.5-5.1)
[2019-07-13 17:10] LABS: ALBUMIN 3.1 g/dL (3.4-4.8); TOTAL BILIRUBIN 0.3 mg/dL (0.0-1.0)
[2019-07-13 17:52] LABS: PROTHROMBIN TIME 9.8 SECS (9.5-12.5)
[2019-07-13] MEDS ORDERED: fentaNYL CITRATE/PF 100 MCG/2 ML AMP IVP ONE (18:00)
[2019-07-13] MEDS ORDERED: ONDANSETRON HCL 4 MG/2 ML VIAL IVP ONE (18:00)
[2019-07-13] MEDS ORDERED: ceFAZolin SODIUM 2 GM in D5W 100 ML IV ONE (18:30)
[2019-07-13] MEDS ORDERED: ALPR0.5T PO (18:31)
[2019-07-13] MEDS ORDERED: TRAZ300T2 PO (18:31)
[2019-07-13] MEDS ORDERED: BUPR300T55 PO (18:31)
[2019-07-13] MEDS ORDERED: QUET200T PO (18:31)
--- NOTE | 2019-07-13 18:32 | NUR ---
Medication reconciliation completed based upon pts recollection of current medications.
--- NOTE | 2019-07-13 18:33 | NUR ---
Patient will be admitted to care of Dr. Booth. Admitted to med surge unit. Will go to room 117B. Belongings list completed. Summary report printed. Report will be given at bedside.
--- NOTE | 2019-07-13 18:35 | NUR ---
Called pharmacy to bring up Ancef to ED per Dr. Booth's admit order.
--- NOTE | 2019-07-13 19:23 | NUR ---
Pt is transferred to room 117B. No acute distress noted.
--- NOTE | 2019-07-13 19:23 | NUR ---
Report is given to RN on floor.
--- NOTE | 2019-07-13 19:35 | NUR ---
ADMISSION NOTES PATIENT AAO X4 ADMITTED FROM ER FOR RT ANKLE CELLULITIS. BREATHING UNLABORED ON ROOM AIR. DENIES PAIN AT THIS TIME. ADMISSION ASSESSMENT INITIATED. PATIENT ORIENTED TO CALL LIGHT,TV AND BED CONTROLS. SEEN BY DR. FELIX AT BEDSIDE. VITAL SIGNS STABLE. BED IN LOWEST LOCKED POSITION. CALL LIGHT WITH IN REACH. SNACK PROVIDED.
[2019-07-13 19:40] VITALS: BP_SYST 133
[2019-07-13] MEDS ORDERED: ACETAMINOPHEN 325 MG TABLET PO PRN (19:45)
[2019-07-13] MEDS ORDERED: traMADol HCL HCL 50 MG TABLET (ULTRAM) PO PRN ×2 (19:45)
[2019-07-13] MEDS ORDERED: VANCOMYCIN HCL 2,000 MG in NS 500 ML IV ONE (20:00)
[2019-07-13] MEDS: LORATADINE 10 MG TABLET PO SCH (21:30)
[2019-07-13] MEDS: traZODone HCL 50 MG TABLET (DESYREL) PO SCH (21:31)
--- NOTE | 2019-07-13 21:31 | NUR ---
MED PASS PATIENT DUE MEDICATION GIVEN AND TOLERATED. ADDITIONAL SNACKS PROVIDED PER PATIENT REQUEST.
--- NOTE | 2019-07-13 21:40 | NUR ---
WOUND CARE WOUND CARE DONE ON RT ANKLE WOUND. WOUND CLEANSED WITH NS AND PAT DRY. COVERED WITH FOAM DRESSING. WOUND PHOTOGRAPH TAKEN AND RECORDED.
--- NOTE | 2019-07-13 22:12 | NUR ---
CONSULTATION PAGED/CALLED Reason for Consultation: CELLULITIS ,ANKLE, SITE OF ORIF Person Who was Notified: VARUN Consulting Physician: GATITO YOUNG IS CENTRAL STERILIZATION TECHNICIAN Char Filter Tank Tender Head Specialty: ORTHO Ordering Physician: ISIDRO
--- NOTE | 2019-07-13 22:17 | NUR ---
CONSULTATION PAGED/CALLED Reason for Consultation: CELLULITIS Person Who was Notified:LOWELL Consulting Physician: OLMAN Android Framework Developer Specialty: ID Ordering Physician: ISIDRO
--- NOTE | 2019-07-14 00:35 | NUR ---
ROUNDS PATIENT RESTING IN BED EYES CLOSED. BREATHING UNLABORED. CALL LIGHT WITH IN REACH.
--- NOTE | 2019-07-14 03:38 | NUR ---
ROUNDS PATIENT AWAKE. DENIES PAIN AT THIS TIME. COFFEE PROVIDED PER PATIENT REQUEST.
[2019-07-14 05:36] LABS: BASOPHILS # (AUTO) 0.2 K/uL (0.0-0.2); BASOPHILS % (AUTO) 1.3 % (0.0-2.0); EOSINOPHILS # (AUTO) 1.3 K/uL (0.0-0.4); EOSINOPHILS % (AUTO) 11.4 % (0.0-4.0); HEMATOCRIT 33.7 % (36-54); HEMOGLOBIN 11.2 g/dL (14.0-18.0); LYMPHOCYTES # (AUTO) 2.8 K/uL (1.0-5.5); MEAN CORPUSCULAR HEMOGLOBIN 28 pg (27-31); MEAN CORPUSCULAR HGB CONC 33 % (32-36); MEAN CORPUSCULAR VOLUME 85 fL (79.0-98.0); MONOCYTES # (AUTO) 0.9 K/uL (0.0-1.0); MONOCYTES % (AUTO) 7.2 % (1.7-9.3); NEUTROPHILS # (AUTO) 6.6 K/uL (1.8-7.7); NEUTROPHILS % (AUTO) 56.1 % (40.0-70.0); PLATELET COUNT (AUTO) 265 K/uL (130-430); RED BLOOD CELL COUNT(AUTO) 3.96 MIL/uL (4.2-6.2); WHITE BLOOD COUNT (AUTO) 11.8 K/uL (4.8-10.8)
[2019-07-14] MEDS: ceFAZolin SODIUM 1 GM in D5W 50 ML IV SCH ×3 (06:35→21:14)
[2019-07-14] MEDS ORDERED: ceFAZolin SODIUM 1 GM VIAL ONE (06:41)
--- NOTE | 2019-07-14 06:45 | NUR ---
UA CLEAN CATCH URINE COLLECTED ORDERED FOR UA. SEND TO LAB
--- NOTE | 2019-07-14 06:51 | NUR ---
CLOSING NOTES PATIENT AWAKE IN BED. NO DISTRESS NOTED. IV ANTIBIOTIC INFUSING WITH IV LINE INTACT. PATIENT NEEDS ATTENDED.
[2019-07-14 07:10] LABS: CHOLESTEROL 204 mg/dL (<200); HDL CHOLESTEROL 33 mg/dL (>45); LDL CHOLESTEROL 124 mg/dL (<100); TRIGLYCERIDES 201 mg/dL (30-150)
--- NOTE | 2019-07-14 07:15 | NUR ---
sbar report received at the bedside. patient aaox 4. has hard of hearing both ears. breathing even and unlabored. lungs bilaterally clear. abdomen soft and non distended. has iv access on the left ac #20. saline lock. bed in low position, alarmed and locked. call lights within reach.. maintained fall/safety precaution.
[2019-07-14] MEDS ORDERED: VANCOMYCIN HCL 1,500 MG in NS 250 ML IV SCH (08:00)
[2019-07-14 08:01] LABS: ERYTHROCYTE SEDIMENTATION RATE 44 MM/HR (0-15)
[2019-07-14] MEDS: buPROPion HCL 150 MG XL TAB PO SCH (08:13)
[2019-07-14] MEDS: CHOLECALCIFEROL (VITAMIN D3) 2,000 UNIT TABLET PO SCH (08:13)
[2019-07-14] MEDS: MULTIVITS,CA,MINERALS/IRON/FA 1 TABLET PO SCH (08:13)
[2019-07-14] MEDS: THIAMINE HCL 100 MG TABLET PO SCH (08:13)
[2019-07-14] MEDS: CYANOCOBALAMIN 1000 mCg TABLET PO SCH (08:13)
--- NOTE | 2019-07-14 08:20 | NUR ---
dr wilkins came and evaluate the patient.
[2019-07-14] MEDS: NICOTINE 21 MG/24 HR PATCH.TD24 TD SCH (08:23)
[2019-07-14] MEDS: FOLIC ACID 1 MG TABLET PO SCH (08:23)
--- NOTE | 2019-07-14 08:24 | NUR ---
medication given at this time. ultram tablet given 2 tabs with water.
[2019-07-14 08:27] VITALS: BP_SYST 126
[2019-07-14] MEDS: DIPHENHYDRAMINE HCL 25 MG CAPSULE PO SCH ×4 (09:00→21:13)
--- NOTE | 2019-07-14 09:00 | NUR ---
has hard of hearing both ears.
--- NOTE | 2019-07-14 10:00 | NUR ---
can turn to sides by himself.
[2019-07-14] MEDS ORDERED: *CUBICIN 6 MG/KG Q24H/PHARMACY XX PRN (11:00)
--- NOTE | 2019-07-14 12:00 | NUR ---
cubicin iv antibiotic hanged at this time.
[2019-07-14] MEDS: ONDANSETRON HCL 4 MG/2 ML VIAL IVP PRN (12:14)
[2019-07-14] MEDS: ALPRAZolam 0.25 MG TABLET PO PRN (12:23)
--- NOTE | 2019-07-14 12:23 | NUR ---
zofran 4 mg iv given. for nausea/vomitting.
[2019-07-14] MEDS: DAPTOMYCIN IV SCH (12:24)
[2019-07-14] MEDS: NS IV SCH (12:24)
[2019-07-14 13:00] VITALS: BP_SYST 124
--- NOTE | 2019-07-14 13:00 | NUR ---
mrsa bilateral nares sent to lab. aerobic and unaerobic culture wound at the right ankle sent to.
[2019-07-14 13:10] LABS: BILIRUBIN,URINE NEGATIVE (NEGATIVE); BLOOD, URINE NEGATIVE (NEGATIVE); CLARITY/URINE CLEAR (CLEAR); COLOR,URINE YELLOW (YELLOW); GLUCOSE,URINE NEGATIVE (NEGATIVE); KETONES,URINE NEGATIVE (NEGATIVE); LEUKOCYTE ESTERASE ,URINE NEGATIVE (NEGATIVE); NITRITE, URINE NEGATIVE (NEGATIVE); PROTEIN URINE NEGATIVE (NEGATIVE); UROBILINOGEN,URINE 0.2 (0.2-1.0)
--- NOTE | 2019-07-14 14:30 | NUR ---
dr cormier called for orders for pain, n/v and itchiness all over.
--- NOTE | 2019-07-14 14:46 | NUR ---
iv antibiotic given
--- NOTE | 2019-07-14 14:55 | NUR ---
verbalized feels itchy and throw up again. zofran not due yet
--- NOTE | 2019-07-14 16:51 | NUR ---
dr cormier came to evaluate the patient.
[2019-07-14 17:00] VITALS: BP_SYST 129
[2019-07-14] MEDS ORDERED: fentaNYL CITRATE/PF 100 MCG/2 ML AMP IVP PRN (17:00)
[2019-07-14] MEDS ORDERED: PANTOPRAZOLE SODIUM 40 MG/VIAL (PROTONIX) IVP ONE (17:00)
--- NOTE | 2019-07-14 17:00 | NUR ---
fentanyl 50 mcg. given via iv for pain.
[2019-07-14] MEDS ORDERED: DOCUSATE SODIUM 250 MG CAPSULE PO ONE (17:30)
[2019-07-14] MEDS ORDERED: BISACODYL 5 MG TABLET.DR (DULCOLAX) PO PRN (17:30)
[2019-07-14] MEDS ORDERED: MILK OF MAGNESIA 30 ML UDC PO PRN (17:30)
--- NOTE | 2019-07-14 17:30 | NUR ---
protonix 40 mg iv given flush normal saline
--- NOTE | 2019-07-14 19:35 | NUR ---
endorsed to nayeli ROBERTS
--- NOTE | 2019-07-14 19:44 | NUR ---
Initial note: Received report from duy RN. Patient is awake in bed watching TV. No acute distress, tolerating room air. IV site to left AC is patent, benign, saline locked. Dressing noted to patient's right lower leg, dressing change performed by duy RN today. Call light with patient. Safety, fall precautions in place. Will continue with plan of care.
[2019-07-14 20:00] VITALS: BP_SYST 137
[2019-07-14] MEDS: traZODone HCL 50 MG TABLET (DESYREL) PO SCH (21:13)
[2019-07-14] MEDS: LORATADINE 10 MG TABLET PO SCH (21:13)
[2019-07-14] MEDS: QUEtiapine FUMARATE 100 MG TABLET PO PRN (21:50)
--- NOTE | 2019-07-14 21:50 | NUR ---
Anxiety: Patient reported feeling anxious. PRN Seroquel indicated. Educated patient regarding indications and side effects, understanding verbalized. Medication administered as ordered by MD, no adverse effects noted. Call light with patient. Will continue to monitor.
--- NOTE | 2019-07-15 00:34 | NUR ---
Rounds: Patient is resting comfortably in bed with eyes closed. No acute distress. Even and unlabored breathing on room air. Call light with patient. Safety, fall precautions in place. Will continue monitoring.
--- NOTE | 2019-07-15 02:29 | NUR ---
IV re-insertion: Patient's left AC IV site became dislodged. IV site was D/C'd, catheter tip wholly intact, gauze dressing applied to site, no active bleeding noted. Inserted 20 gauge angiocath to patient's RICO, successful after 1 attempt. Patient tolerated well. Call light is with patient. Safety, fall precautions in place. Will continue to monitor.
[2019-07-15] MEDS: fentaNYL CITRATE/PF 100 MCG/2 ML AMP IVP PRN ×2 (02:32→18:32)
--- NOTE | 2019-07-15 02:33 | NUR ---
Pain: Patient was complaining of right foot pain after ambulating to bathroom. PRN Fentanyl 25 MCG indicated. Educated patient regarding indications and side effects, patient verbalized understanding. Patient requested medication for possible side effects of nausea. He stated that he gets nauseous when he receives pain medications. Patient was premedicated with Zofran 4 MG IVP as indicated. Fentanyl 25 MCG was administered slowly via RICO IV site, no adverse effects noted. Call light with patient. Safety and fall precautions in place. Will continue monitoring.
[2019-07-15] MEDS: ONDANSETRON HCL 4 MG/2 ML VIAL IVP PRN ×2 (02:37→18:32)
[2019-07-15 04:57] VITALS: BP_SYST 126
[2019-07-15] MEDS: ceFAZolin SODIUM 1 GM in D5W 50 ML IV SCH (05:03)
[2019-07-15 05:22] LABS: BASOPHILS # (AUTO) 0.1 K/uL (0.0-0.2); BASOPHILS % (AUTO) 0.9 % (0.0-2.0); EOSINOPHILS % (AUTO) 11.3 % (0.0-4.0); HEMATOCRIT 29.6 % (36-54); LYMPHOCYTES # (AUTO) 2.3 K/uL (1.0-5.5); LYMPHOCYTES % (AUTO) 25.9 % (20.5-51.5); MEAN CORPUSCULAR HEMOGLOBIN 28 pg (27-31); MEAN CORPUSCULAR HGB CONC 34 % (32-36); MEAN CORPUSCULAR VOLUME 84 fL (79.0-98.0); MONOCYTES # (AUTO) 0.8 K/uL (0.0-1.0); MONOCYTES % (AUTO) 9.4 % (1.7-9.3); NEUTROPHILS # (AUTO) 4.7 K/uL (1.8-7.7); NEUTROPHILS % (AUTO) 52.5 % (40.0-70.0); PLATELET COUNT (AUTO) 208 K/uL (130-430); RED BLOOD CELL COUNT(AUTO) 3.52 MIL/uL (4.2-6.2); RED CELL DISTRIBUTION WIDTH 15.9 % (9.0-15.0); WHITE BLOOD COUNT (AUTO) 8.9 K/uL (4.8-10.8)
--- NOTE | 2019-07-15 06:27 | NUR ---
Closing note: Patient is resting in bed comfortably, no acute distress. No complaints of pain at this time. Even and unlabored breathing on room air. IV site is patent and benign. All needs met. Safety, fall precautions in place. Will continue with plan of care.
--- NOTE | 2019-07-15 08:00 | NUR ---
OPENING NOTE patient resting in bed A&O x4, patient denies any acute distress or pain at this time, breathing is even and unlabored on room air, educated patient on plan of care and call light system, patient ambulated to bathroom with steady gait, will continue to monitor, safety precautions in place, call light within reach.
[2019-07-15 08:01] VITALS: BP_SYST 119
--- NOTE | 2019-07-15 08:11 | NUR ---
WOUND EVALUATION: Wound Consult received from Dr. Booth. Thank you, Dr. Booth, for the consult. Patient received in a [place] Bed with a mattress, awake, alert, and oriented. Patient is able to turn in bed and ambulate independently. Antonino Score is an 18. Past Medical History: Hypertension, bipolar disorder, open reduction and internal fixation of right ankle fracture (eight weeks ago), alcohol abuse. Patient had possible Red Man Syndrome from IV Vancomycin for right ankle infection. Recent Labs: WBC 8.9 (11.8 on 07/14/19), RBC 3.52, hemoglobin 10.0, hematocrit 29.6, ESR 44, BUN 14, creatinine 1.19, GFR 66, glucose 106, alkaline phosphatase 122, albumin 3.1. PTT 25.4. Echo biology: Blood culture results 2 in progress. MRSA screen results in progress. Right foot wound culture results in progress. Intrinsic factors that delay wound healing: Hypoalbuminemia. Extrinsic factors that delay wound healing: Decreased mobility. Wound Assessment: 1. Right Lateral Malleolus: Non-healing surgical wound, present on admission. Wound bed has 100% yellow slough. No odor, small yellow purulent drainage. Jenny-wound intact. Measures 1.5 cm x 0.4 cm. Recommend: Cleanse wound with normal saline. Apply SurePrep to jenny-wound. Apply Venelex ointment to wound bed. Cover with silver foam dressing. Perform wound care daily, and as needed for dressing soiling or dislodgement. Also recommend: Encourage and remind patient to reposition every 2 hours with pillow support and off-load pressure areas with pillows for pressure re-distribution. Elevate right lower extremity with pillows to decrease edema. Perform skin care and monitor skin integrity Q shift. Addendum: 07/15/19 at 0833 by Isaiah Isaac RN Wound 1. has mild calor, and localized non-pitting edema.
[2019-07-15] MEDS: NICOTINE 21 MG/24 HR PATCH.TD24 TD SCH (08:49)
[2019-07-15] MEDS: buPROPion HCL 150 MG XL TAB PO SCH (08:49)
[2019-07-15] MEDS: FOLIC ACID 1 MG TABLET PO SCH (08:50)
[2019-07-15] MEDS: CHOLECALCIFEROL (VITAMIN D3) 2,000 UNIT TABLET PO SCH (08:50)
[2019-07-15] MEDS: CYANOCOBALAMIN 1000 mCg TABLET PO SCH (08:50)
[2019-07-15] MEDS: DOCUSATE SODIUM 250 MG CAPSULE PO SCH ×2 (08:50→21:06)
[2019-07-15] MEDS: THIAMINE HCL 100 MG TABLET PO SCH (08:50)
[2019-07-15] MEDS: DIPHENHYDRAMINE HCL 25 MG CAPSULE PO SCH ×4 (08:50→21:06)
[2019-07-15] MEDS: MULTIVITS,CA,MINERALS/IRON/FA 1 TABLET PO SCH (08:50)
[2019-07-15] MEDS: PANTOPRAZOLE SODIUM 40 MG/VIAL (PROTONIX) IVP SCH ×2 (08:51→21:06)
[2019-07-15] MEDS ORDERED: BALSAM PERU/CASTOR OIL 60 GM OINT...G. TP ONE (09:00)
--- NOTE | 2019-07-15 10:06 | NUR ---
NOTES patient is resting in bed with eyes closed, no acute distress or pain noted at this time, breathing is even and unlabored on room air, will continue to monitor, safety precautions in place, call light within reach.
--- NOTE | 2019-07-15 10:12 | NUR ---
Nutrition Update Antonino Scale 18 noted. Pt admitted for Cellulitis Diet: Regular BMI: 27.4kg/m2 RD to follow per nutrition care standards.
[2019-07-15] MEDS: DAPTOMYCIN IV SCH (10:21)
[2019-07-15] MEDS: NS IV SCH (10:21)
[2019-07-15] MEDS ORDERED: FERROUS SULFATE 325 MG TABLET.DR PO ONE (10:45)
[2019-07-15] MEDS: ALPRAZolam 0.25 MG TABLET PO PRN ×2 (11:50→21:07)
[2019-07-15 12:30] LABS: PROTHROMBIN TIME 9.9 SECS (9.5-12.5)
--- NOTE | 2019-07-15 12:31 | NUR ---
NOTES patient is resting in bed eating lunch, no acute distress or pain is noted at this time, breathing is even and unlabored on room air, will continue to monitor, safety precautions in place, call light within reach.
[2019-07-15 12:57] VITALS: BP_SYST 133
--- NOTE | 2019-07-15 13:32 | NUR ---
Discharge Planning: DCP faxed pt referral to [facility] (f [phone] p [phone]), [facility] (f [phone] P [phone]), [facility] (f [phone] p [phone])
[2019-07-15] MEDS: FERROUS SULFATE 325 MG TABLET.DR PO SCH ×2 (13:52→21:06)
[2019-07-15] MEDS: QUEtiapine FUMARATE 100 MG TABLET PO PRN (13:52)
--- NOTE | 2019-07-15 14:20 | NUR ---
ENDORSEMENT report given to oncoming nurse, educated patient on plan of care, patient denies any acute distress or pain at this time, breathing is even and unlabored on room air, all needs were met throughout shift, safety precautions in place, call light within reach.
--- NOTE | 2019-07-15 14:25 | NUR ---
Opening Note received bedside SBAR report from endorsing RN, patient resting in bed, respirations even and unlabored on room air, no acute distress noted, patient denies any pain, educated patient on use of call light and asked to call for assistance, patient verbalized understanding, call light in reach, educated patient on use of bed alarm for patient safety, patient refusing bed alarm, bed in low and locked position.
[2019-07-15 16:15] VITALS: BP_SYST 126
--- NOTE | 2019-07-15 16:15 | NUR ---
[facility] Note Patient referred to [facility] by Case Management due to history of PTSD, ETOH, and depression. FOOD COOKING MACHINE OPERATOR met with patient at beside. Patient is alert and oriented and was calm and accepting of pending transfer to SNF. Patient has been at [facility] for 1.5 years and plans to return. 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 He denied the need for resource referral for mental health/substance abuse and feels he is coping well and remaining sober with his current regimen. FOOD COOKING MACHINE OPERATOR discussed DPOA for health care with patient and provided one for patient to complete. Patient has no further apparent needs or concerns at this time.
--- NOTE | 2019-07-15 16:40 | NUR ---
Spoke with PICC line RN spoke with PICC line RN Carrington, he is aware of PICC line order and will be in to place PICC line for patient.
--- NOTE | 2019-07-15 16:55 | NUR ---
Wound Care educated patient on purpose and procedure for wound care, patient verbalized understanding, wound care completed to right ankle, cleansed with NS, sure prep applied to periwound, venelex applied to wound bed, covered with silver foam dressing, patient tolerated well, patient denies any pain during or after wound care.
--- NOTE | 2019-07-15 19:22 | NUR ---
Closing Note bedside SBAR report given to receiving RN, patient resting in bed, patient reports pain is controlled at this time, no acute distress noted, educated patient on use of call light and asked to call for assistance, patient verbalized understanding, call light in reach, educated patient on use of bed alarm for patient safety, patient refusing bed alarm, bed in low and locked position, care endorsed to night cleaner RN.
[2019-07-15 20:00] VITALS: BP_SYST 129
--- NOTE | 2019-07-15 20:00 | NUR ---
PICC LINE NURSE @ THE BEDSIDE FOR PICC PROCEDURE .
--- NOTE | 2019-07-15 20:05 | NUR ---
TIME OUT INVASIVE PROCEDURE DONE @ THE BEDSIDE .
--- NOTE | 2019-07-15 20:30 | NUR ---
CXR done @ the bedside FOR PICC line .
[2019-07-15] MEDS: LORATADINE 10 MG TABLET PO SCH (21:06)
[2019-07-15] MEDS: CEFEPIME 1 GM in D5W 50 ML IV SCH (21:06)
[2019-07-15] MEDS: traZODone HCL 50 MG TABLET (DESYREL) PO SCH (21:07)
--- NOTE | 2019-07-15 21:15 | NUR ---
DR HANNAH TAPIA WITH PATIENT @ THE BEDSIDE .
--- NOTE | 2019-07-16 | NUR ---
XANAX 0.5 MG PO administer for ANXIETY & helpful / .
[2019-07-16 01:31] VITALS: BP_SYST 117
--- NOTE | 2019-07-16 03:52 | NUR ---
Hourly Rounding patient Resting chest movement symmetrical fall MEASURES intact call hernandez with patient no complaints made .
[2019-07-16] MEDS: fentaNYL CITRATE/PF 100 MCG/2 ML AMP IVP PRN (05:08)
[2019-07-16 06:14] LABS: BASOPHILS # (AUTO) 0.1 K/uL (0.0-0.2); BASOPHILS % (AUTO) 1.2 % (0.0-2.0); EOSINOPHILS % (AUTO) 9.8 % (0.0-4.0); LYMPHOCYTES # (AUTO) 2.5 K/uL (1.0-5.5); LYMPHOCYTES % (AUTO) 25.5 % (20.5-51.5); MEAN CORPUSCULAR HEMOGLOBIN 28 pg (27-31); MEAN CORPUSCULAR HGB CONC 34 % (32-36); MEAN CORPUSCULAR VOLUME 85 fL (79.0-98.0); MONOCYTES # (AUTO) 0.8 K/uL (0.0-1.0); NEUTROPHILS # (AUTO) 5.5 K/uL (1.8-7.7); NEUTROPHILS % (AUTO) 55.5 % (40.0-70.0); PLATELET COUNT (AUTO) 216 K/uL (130-430); RED BLOOD CELL COUNT(AUTO) 3.55 MIL/uL (4.2-6.2); RED CELL DISTRIBUTION WIDTH 15.8 % (9.0-15.0); WHITE BLOOD COUNT (AUTO) 9.9 K/uL (4.8-10.8)
--- NOTE | 2019-07-16 06:20 | NUR ---
FENTANYL 25 MCG IVP administer for pain 05/03 general & helpful .
[2019-07-16 07:13] LABS: ALBUMIN 2.7 g/dL (3.4-4.8); CALCIUM 8.6 mg/dL (8.4-11.0); CREATININE 1.1 mg/dL (0.55-1.30); FREE T4 (FREE THYROXINE) 0.6 ng/dl (0.8-1.5); POTASSIUM 4.3 mmol/L (3.5-5.1); THYROID STIMULATING HORMONE 1.57 uIu/mL (0.36-3.74); TOTAL BILIRUBIN 0.1 mg/dL (0.0-1.0)
[2019-07-16 07:14] LABS: TOTAL IRON BIND. CAPACITY 257 ug/dL (250-450)
[2019-07-16 07:58] VITALS: BP_SYST 116
--- NOTE | 2019-07-16 08:00 | NUR ---
Note Pt sitting on side of bed eating his breakfast. No SOB/resp distress or severe right ankle pain/discomfort was noted at this time. Left upper arm IV intact and patent at this time. AKOSUA PICC inserted last night intact and patent at this time. No needs noted at this time. Call light within reach.
[2019-07-16] MEDS: CEFEPIME 1 GM in D5W 50 ML IV SCH (08:28)
[2019-07-16] MEDS: FERROUS SULFATE 325 MG TABLET.DR PO SCH (08:31)
[2019-07-16] MEDS: CYANOCOBALAMIN 1000 mCg TABLET PO SCH (08:31)
[2019-07-16] MEDS: PANTOPRAZOLE SODIUM 40 MG/VIAL (PROTONIX) IVP SCH (08:31)
[2019-07-16] MEDS: THIAMINE HCL 100 MG TABLET PO SCH (08:31)
[2019-07-16] MEDS: FOLIC ACID 1 MG TABLET PO SCH (08:32)
[2019-07-16] MEDS: DIPHENHYDRAMINE HCL 25 MG CAPSULE PO SCH ×2 (08:33→12:02)
[2019-07-16] MEDS: MULTIVITS,CA,MINERALS/IRON/FA 1 TABLET PO SCH (08:33)
[2019-07-16] MEDS: DOCUSATE SODIUM 250 MG CAPSULE PO SCH (08:33)
[2019-07-16] MEDS: NICOTINE 21 MG/24 HR PATCH.TD24 TD SCH ×2 (08:33→08:46)
[2019-07-16] MEDS: buPROPion HCL 150 MG XL TAB PO SCH (08:33)
[2019-07-16] MEDS: CHOLECALCIFEROL (VITAMIN D3) 2,000 UNIT TABLET PO SCH (08:33)
[2019-07-16] MEDS: ALPRAZolam 0.25 MG TABLET PO PRN (08:40)
[2019-07-16] MEDS: NS IV SCH (08:44)
[2019-07-16] MEDS: DAPTOMYCIN IV SCH (08:44)
[2019-07-16] MEDS ORDERED: BALSAM PERU/CASTOR OIL 60 GM OINT...G. TP SCH (09:00)
--- NOTE | 2019-07-16 11:00 | NUR ---
Note Pt ambulates in and OOB independently with steady gait. Right ankle dressing CDI at this time. No needs noted at this time. Call light within reach.
[2019-07-16 11:24] VITALS: BP_SYST 146
--- NOTE | 2019-07-16 11:33 | NUR ---
Discharge Planning: [facility] (f [phone] P [phone]) Rm 102A, transportation arranged with [facility] ([phone]) 2:00pm P/U. Nurse made aware pt packet taken to nurse station.
[2019-07-16 13:02] VITALS: BP_SYST 119
--- NOTE | 2019-07-16 13:20 | NUR ---
Note Pt's right ankle dressing was cleaned and changed. Small amount of drainage noted at this time. Pt was given his discharge instructions at this time. Discharge packet ready and at nurses' station at this time. Pt was given Ultram 50mg tab at this time for right ankle pain. Pt's RICO IV was dc'd - site benign - no swelling/redness/bleeding/drainage noted at this time. Pt dressed in street clothes and has all belongings packed and at bedside at this time. Report was given to Tyshawn RN at [facility] at 1300. No SOB/resp distress or severe pain/discomfort noted at this time. Call light within reach.
--- NOTE | 2019-07-16 14:50 | NUR ---
Note [facility] ambulance at nurses' station and report was given. Pt was checked on q1' and PRN all shift for needs and care. Pt stable at this time. Discharge packet given to [facility] to given to [facility] at this time.
--- NOTE | 2019-07-16 14:55 | NUR ---
Note Pt off the floor to [facility] via [facility] with all his belongings.
== END 2019-07-16 14:55 | DRG 560 ==
LOC: SED 15:54 → SMU 18:22
PROVIDERS: ADMIT Internal Medicine; ATTEND Internal Medicine
PROC: 02HV33Z Insertion of Infusion Device into Superior Vena Cava, Percutaneous Approach (ICD-10-PCS; principal; 2019-07-15)
PROC: B548ZZA Ultrasonography of Superior Vena Cava, Guidance (ICD-10-PCS; 2019-07-15)
DX: T84.69XA Infection and inflammatory reaction due to internal fixation device of other site, initial encounter (principal); L03.115 Cellulitis of right lower limb; M86.8X7 Other osteomyelitis, ankle and foot; R65.10 Systemic inflammatory response syndrome (SIRS) of non-infectious origin without acute organ dysfunction; Y83.8 Other surgical procedures as the cause of abnormal reaction of the patient, or of later complication, without mention of misadventure at the time of the procedure; L26 Exfoliative dermatitis; F31.9 Bipolar disorder, unspecified; D50.9 Iron deficiency anemia, unspecified; F17.210 Nicotine dependence, cigarettes, uncomplicated; F10.20 Alcohol dependence, uncomplicated; I10 Essential (primary) hypertension; T36.8X5A Adverse effect of other systemic antibiotics, initial encounter; Y92.89 Other specified places as the place of occurrence of the external cause; Z59.0 Homelessness; Z79.899 Other long term (current) drug therapy
CPT/HCPCS: 36415; 71045; 80053; 80061; 81003; 82607; 83540-TC; 83550-TC; 83605; 84439; 84443-TC; 85025; 85610-TC; 85651-TC; 85730-TC; 87040-TC; 87070-TC; 87081; 87186-TC; 93005; 99285; C1751; C1769; C9113; J0690; J0692; J0878; J2405; J3010; J3370; J7040; J7050; J7060; Q0163

== ENCOUNTER 2019-08-24 19:42 | Emergency (ER) | payer OTHER ==
[~2019-08-24] VITALS: Ht 193 cm; Wt 106.6 kg
[~2019-08-24 19:42] MED LIST changes: +ALPR0.5T PO; -BENZ1TAB7 PO; +BUPR300T55 PO; -BUSP5TAB3 PO; -CHOL100024 PO; -CYAN100070 PO; -DOXY100T2 PO; -L.RH1CAP PO; -MULT-1117 PO; +QUET200T PO; -TRAZ-219 PO; +TRAZ300T2 PO
[2019-08-24 19:47] VITALS: BP_SYST 141
[2019-08-24] MEDS ORDERED: IPRATROPIUM/ALBUTEROL SULFATE 3 ML AMPUL.NEB (DUONEB) INH ONE (20:15)
[2019-08-24] MEDS ORDERED: KETOROLAC TROMETHAMINE 60 MG/2 ML VIAL IM ONE (20:45)
[2019-08-24] MEDS ORDERED: DEXAMETHASONE SOD PHOSPHATE 10 MG/ML VIAL IM ONE (20:45)
== END 2019-08-24 21:20 | disposition home or self-care (01) ==
LOC: SED 19:42
DX: J06.9 Acute upper respiratory infection, unspecified (principal); F17.210 Nicotine dependence, cigarettes, uncomplicated; K21.9 Gastro-esophageal reflux disease without esophagitis; I10 Essential (primary) hypertension; Z88.1 Allergy status to other antibiotic agents; Z79.899 Other long term (current) drug therapy; Z71.6 Tobacco abuse counseling
CPT/HCPCS: 71045; 94640; 96372; 99283; J1100; J1885; J7620

== ENCOUNTER 2019-09-17 07:40 | Day surgery (SDC) | payer OTHER ==
[~2019-09-17] VITALS: Ht 190.5 cm; Wt 104.3 kg
[2019-09-17] MEDS ORDERED: POLYMYXIN 500,000/BACIT.10,000 UNITS in NS IRR 1 L IR ONE (12:18)
[2019-09-17] MEDS ORDERED: LR 1,000 ML IV SCH (12:32)
[2019-09-17] MEDS ORDERED: HYDROmorphone 2 MG/ML VIAL IVP PRN ×2 (12:45)
[2019-09-17] MEDS ORDERED: HYDROmorphone 1 MG INJ. 1 MG/ML AMPUL IVP PRN (12:45)
[2019-09-17] MEDS ORDERED: MEPERIDINE HCL/PF 25 MG/ML DISP.SYRIN IVP PRN (12:45)
[2019-09-17] MEDS ORDERED: LR 1,000 ML IV.SOLN IV ONE (12:55)
[2019-09-17] MEDS ORDERED: MIDAZOLAM HCL 5 MG/ML VIAL (VERSED) IV ONE (12:55)
[2019-09-17] MEDS ORDERED: ONDANSETRON HCL 4 MG/2 ML VIAL ONE (12:55)
[2019-09-17] MEDS ORDERED: fentaNYL CITRATE/PF 100 MCG/2 ML AMP ONE (12:55)
[2019-09-17] MEDS ORDERED: CEFAZOLIN 2 GM IVPB PREMIX 50 ML IV ONE (12:55)
[2019-09-17] MEDS ORDERED: KETOROLAC TROMETHAMINE 30 MG VIAL ONE (12:55)
[2019-09-17] MEDS ORDERED: SEVOFLURANE 15 MIN GAS INH ONE (12:55)
[2019-09-17] MEDS ORDERED: ROCURONIUM BROMIDE 10 MG/ML (ZEMURON) ONE (12:55)
[2019-09-17] MEDS ORDERED: fentaNYL CITRATE 250 MCG/5 ML AMP ONE (12:55)
[2019-09-17] MEDS ORDERED: PROPOFOL 200MG/ 20ML VIAL (DIPRIVAN) IV ONE ×2 (12:55)
[2019-09-17] MEDS ORDERED: DEXAMETHASONE SOD PHOSPHATE 4 MG/ML VIAL ONE (12:55)
[2019-09-17] MEDS ORDERED: ACETAMINOPHEN 325 MG TABLET PO PRN (13:00)
[2019-09-17] MEDS ORDERED: QUEtiapine FUMARATE 100 MG TABLET PO PRN (13:15)
[2019-09-17 13:30] VITALS: BP_SYST 133
[2019-09-17 13:37] VITALS: BP_SYST 137
--- NOTE | 2019-09-17 13:54 | NUR ---
ADMIT NOTE Received pt from OR to the floor with a diagnosis of RIGHT ANKLE FX UNSP.. Admission process initiated. patient oriented to pain management, safety and call light-teach back done.
[2019-09-17] MEDS ORDERED: FLU VACC QS2019-20 36MOS UP/PF 60 MCG/0.5 ML SYRINGE I.M. PRN (14:30)
[2019-09-17] MEDS: ALPRAZolam 0.25 MG TABLET PO PRN (15:04)
[2019-09-17] MEDS: HYDROcodone/ACETAMIN 5-325 MG TAB (NORCO/ VICODIN) PO PRN ×2 (15:05→21:10)
--- NOTE | 2019-09-17 16:18 | NUR ---
PATIENT IS AMBULATING WITH RN AND WALKER. TOLERATING WITHOUT DISTRESS.
--- NOTE | 2019-09-17 18:30 | NUR ---
Patient finishes dinner. Tolerated without distress.
[2019-09-17] MEDS ORDERED: traZODone HCL 50 MG TABLET (DESYREL) PO SCH (21:00)
--- NOTE | 2019-09-17 21:00 | NUR ---
PT RECIEVED AWAKE ALERT AND ORIENTED X3 . VITAL SIGN STABLE. PT HAD ORIF TO THE RIGHT LOWER EXTREMITY ,PT WAS MEDICATED WITH VICODIN 1 TAB . PAIN MED HAD GOOD EFFECT
[2019-09-17] MEDS: DOCUSATE SODIUM 100 MG CAPSULE PO SCH (21:09)
[2019-09-17 22:47] VITALS: BP_SYST 154
--- NOTE | 2019-09-18 01:30 | NUR ---
PT WAS MEDICATED WITH YLENOL FOR PAIN
[2019-09-18] MEDS: HYDROcodone/ACETAMIN 5-325 MG TAB (NORCO/ VICODIN) PO PRN ×3 (02:14→10:37)
--- NOTE | 2019-09-18 02:15 | NUR ---
continuation of care: pt is awake, alert. complain of apin. no distress. educate pt. needs attended, wanda light in reach. will follow-uip.
[2019-09-18 02:34] VITALS: BP_SYST 121
[2019-09-18] MEDS: ALPRAZolam 0.25 MG TABLET PO PRN ×2 (04:03→10:34)
--- NOTE | 2019-09-18 04:08 | NUR ---
pt is awake, alert, no pain. not distress. pt ask for anxiety pill. pt ambulates to bathroom with walker, steady, back to bed, educated about xanax. pt agree. needs attended. call light in reach. will follow-up.
--- NOTE | 2019-09-18 06:29 | NUR ---
pt is wakes up. complain of pain. no distress. educate pt.pt agree and understand. needs attended, wanda light in reach. will follow-up.
--- NOTE | 2019-09-18 07:31 | NUR ---
closing: pt is awake. no pain, flu vacc. given pt tolerate well. bedside report given to am rn.
[2019-09-18 08:00] VITALS: BP_SYST 137
--- NOTE | 2019-09-18 08:00 | NUR ---
INITIAL NOTES- In bed watching tv, right leg dressing is dry and intact. ambulate with front wheel walker. Pain is controlled at this time. Update plan of care. call light within reach. will monitor.
[2019-09-18] MEDS: DOCUSATE SODIUM 100 MG CAPSULE PO SCH (08:46)
[2019-09-18] MEDS ORDERED: ENOXAPARIN SODIUM 40 MG/0.4 ML SYRINGE SUBCUT SCH (09:00)
[2019-09-18] MEDS ORDERED: buPROPion HCL 150 MG XL TAB PO SCH (09:00)
--- NOTE | 2019-09-18 11:00 | NUR ---
FOLLOW UP DC ORDER PAGED DR YOUNG AWAITING TO CALL BACK.
[2019-09-18 11:20] VITALS: BP_SYST 155
[2019-09-18] MEDS ORDERED: CALCIUM CARBONATE 500 MG/ TAB.CHEW PO ONE (11:30)
[2019-09-18 11:40] VITALS: BP_SYST 155
--- NOTE | 2019-09-18 12:06 | NUR ---
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 DISCHARGE INSTRUCTIONS WILL BE GIVEN TO PATIENT.
--- NOTE | 2019-09-18 13:15 | NUR ---
discharge to [facility], accompanied by staff from [facility]. Pt came from [facility]. Dressing on the right foot is dry and intact. Pain is controlled at this time. Ambulate with FWW. Discharge instruction given and discussed with patient. Picc line on the right upper arm is clean and dry. IVL removed.
== END 2019-09-18 13:20 ==
LOC: SMU 07:40 → SDS 07:40 → SMU 14:07 → SDS 09-18 13:20
PROVIDERS: ATTEND Orthopaedic Surgery
DX: T84.84XA Pain due to internal orthopedic prosthetic devices, implants and grafts, initial encounter (principal); F20.9 Schizophrenia, unspecified; F29 Unspecified psychosis not due to a substance or known physiological condition; Z88.1 Allergy status to other antibiotic agents
CPT/HCPCS: 20680; 87081; J0690; J1100; J1170; J1650; J1885; J2250; J2405; J2704; J3010 ×2; J7120

== ENCOUNTER 2020-10-19 14:41 | Emergency (ER) | payer OTHER ==
[~2020-10-19] VITALS: Ht 182.9 cm; Wt 88.5 kg
[2020-10-19 14:42] VITALS: BP_SYST 142
[2020-10-19 18:46] VITALS: BP_SYST 142
== END 2020-10-19 18:46 | disposition home or self-care (01) ==
LOC: SED 14:41
DX: S62.341A Nondisplaced fracture of base of second metacarpal bone, left hand, initial encounter for closed fracture (principal); S01.01XA Laceration without foreign body of scalp, initial encounter; F10.129 Alcohol abuse with intoxication, unspecified; I10 Essential (primary) hypertension; K21.9 Gastro-esophageal reflux disease without esophagitis; F41.9 Anxiety disorder, unspecified; F17.200 Nicotine dependence, unspecified, uncomplicated; Z79.899 Other long term (current) drug therapy; Z88.1 Allergy status to other antibiotic agents; W18.39XA Other fall on same level, initial encounter; Y93.89 Activity, other specified; Y92.59 Other trade areas as the place of occurrence of the external cause; Y99.8 Other external cause status
CPT/HCPCS: 70450-TC; 76376; 99284

== ENCOUNTER 2020-10-20 13:05 | Emergency (ER) | payer OTHER, SELFPAY ==
[~2020-10-20] VITALS: Ht 193 cm; Wt 90.7 kg
[2020-10-20 13:23] VITALS: BP_SYST 153
--- NOTE | 2020-10-20 13:23 | NUR ---
Patient triaged and placed on wall. VSS and patient appears in no acute distress at this time. Accompanied by vibrating screed operator, awaiting available bed, and MD notified of need for MSE.
--- NOTE | 2020-10-20 13:25 | NUR ---
Patient placed on suicide precautions. Patient placed in room within close proximity to nurses' station for closer observation and monitoring. All clothing removed, placed in hospital gown. Metal detector wand used to further screen patient of any potential hazardous belongings. All belongings inventoried, placed in bags and removed from room. Cabinets locked. BP and pulse oximeter cords, and front desk monitor leads removed.
--- NOTE | 2020-10-20 13:32 | NUR ---
Patient to ER bed 5 to gown for evaluation. Side rails up. Report given to ALEJANDRA Knott.
--- NOTE | 2020-10-20 13:40 | NUR ---
Pt came to ER ETOH intoxication and verbalizes suicidal ideation. Pt was seen in ER yesterday for L hand fracture and head lac after falling out of bed while ETOH intoxicated. Pt only complaint today is L hand pain 5/10, VSS, awaiting MD.
--- NOTE | 2020-10-20 13:55 | NUR ---
ER at bedside examining patient.
[2020-10-20 14:56] LABS: BILIRUBIN,URINE NEGATIVE (NEGATIVE); CLARITY/URINE CLEAR (CLEAR); COLOR,URINE YELLOW (YELLOW); GLUCOSE,URINE NEGATIVE (NEGATIVE); KETONES,URINE NEGATIVE (NEGATIVE); LEUKOCYTE ESTERASE ,URINE NEGATIVE (NEGATIVE); NITRITE, URINE NEGATIVE (NEGATIVE); PROTEIN URINE NEGATIVE (NEGATIVE); UROBILINOGEN,URINE 0.2 (0.2-1.0)
[2020-10-20 14:59] LABS: BASOPHILS # (AUTO) 0.1 K/uL (0.0-0.2); BASOPHILS % (AUTO) 0.7 % (0.0-2.0); EOSINOPHILS # (AUTO) 0.1 K/uL (0.0-0.4); EOSINOPHILS % (AUTO) 0.7 % (0.0-4.0); HEMOGLOBIN 13.9 g/dL (14.0-18.0); LYMPHOCYTES # (AUTO) 2.4 K/uL (1.0-5.5); LYMPHOCYTES % (AUTO) 24.8 % (20.5-51.5); MEAN CORPUSCULAR HEMOGLOBIN 29 pg (27-31); MEAN CORPUSCULAR HGB CONC 34 % (32-36); MEAN CORPUSCULAR VOLUME 87 fL (79.0-98.0); MONOCYTES # (AUTO) 0.5 K/uL (0.0-1.0); MONOCYTES % (AUTO) 5.4 % (1.7-9.3); NEUTROPHILS # (AUTO) 6.5 K/uL (1.8-7.7); NEUTROPHILS % (AUTO) 68.4 % (40.0-70.0); PLATELET COUNT (AUTO) 260 K/uL (130-430); RED BLOOD CELL COUNT(AUTO) 4.74 MIL/uL (4.2-6.2); WHITE BLOOD COUNT (AUTO) 9.5 K/uL (4.8-10.8)
[2020-10-20 15:00] LABS: BLOOD, URINE TRACE (NEGATIVE)
[2020-10-20 15:07] LABS: BARBITURATE, URINE NEGATIVE (NEG <=200); BENZODIAZEPINE, URINE POSITIVE (NEG <=150); CANNABINOID, URINE NEGATIVE (NEG <=50); COCAINE, URINE NEGATIVE (NEG <=150); METHAMPHETAMINES SCREEN,URINE NEGATIVE (NEG <=500); PHENCYCLIDINE SCREEN,URINE NEGATIVE (NEG <=25); URINE AMPHETAMINE NEGATIVE (NEG <=500); URINE METHADONE NEGATIVE (NEG <=200)
[2020-10-20 15:07] LABS: ANION GAP 8 (5-15); CALCIUM 8.5 mg/dL (8.4-11.0); CHLORIDE 104 mmol/L (98-107); CREATININE 0.99 mg/dL (0.55-1.30); GLUCOSE 95 mg/dL (70-99); POTASSIUM 4.2 mmol/L (3.5-5.1); SODIUM SERUM 140 mmol/L (136-145); UREA NITROGEN, BLOOD 16 mg/dL (8-21)
[2020-10-20 15:08] LABS: OPIATE, URINE NEGATIVE (NEG <=100); UR TRICYCLIC ANTIDEPRESSANTS NEGATIVE (NEG <=300); URINE OXYCODONE SCREEN NEGATIVE (NEG <=100); URINE PROPOXYPHENE SCREEN NEGATIVE (NEG <=300)
[2020-10-20 15:12] LABS: GFR AFRICAN AMERICAN 99 mL/min (>90)
[2020-10-20 15:19] LABS: ALANINE AMINOTRANSFERASE 32 U/L (12-78); ALBUMIN 3.9 g/dL (3.4-4.8); ALCOHOL, BLOOD 149 mg/dL (<10); ASPARTATE AMINOTRANSFERASE 24 U/L (10-37); TOTAL BILIRUBIN 0.4 mg/dL (0.0-1.0)
[2020-10-20 15:23] LABS: ACETAMINOPHEN < 1 ug/mL (1-30)
[2020-10-20 15:25] LABS: BACTERIA,URINE None Seen /HPF (None Seen); RBC,URINE 0-3 /HPF (0-3); WBC,URINE 0-3 /HPF (0-3)
[2020-10-20 15:26] LABS: MUCUS,URINE 1+ /LPF (None Seen)
--- NOTE | 2020-10-20 16:03 | NUR ---
Pt resting in [facility], sitter at bedside
--- NOTE | 2020-10-20 17:44 | NUR ---
Pt resting in [facility] at this time, eating a snack
--- NOTE | 2020-10-20 19:15 | NUR ---
REPORT RECEIVED FROM ALEJANDRA TAYLOR FOR CONTINUING CARE
--- NOTE | 2020-10-20 19:30 | NUR ---
1:1 SITTER AT THE BEDSIDE
--- NOTE | 2020-10-20 22:42 | NUR ---
PT SLEEPING IN BED, NO S/SX OF DISTRESS
--- NOTE | 2020-10-21 01:30 | NUR ---
hospital bed placed in the patient room for comfort. Patient requesting medication for sleep and pain. Md notified.
[2020-10-21] MEDS ORDERED: IBUPROFEN 600 MG TABLET PO ONE (01:45)
[2020-10-21] MEDS ORDERED: LORazepam 1 MG TABLET PO ONE (01:45)
--- NOTE | 2020-10-21 01:59 | NUR ---
pt medicated per MD orders. pt tolerated well. pt ambulates to restroom with steady gait. optics manufacturing technician at bedside.
--- NOTE | 2020-10-21 03:17 | NUR ---
PT IS SLEEPING, NO S/SX OF DISTRESS. SITTER AT THE BEDSIDE
--- NOTE | 2020-10-21 05:15 | NUR ---
PT SLEEPING IN BED, NO S/SX OF DISTRESS. SITTER AT THE BEDSIDE
--- NOTE | 2020-10-21 06:00 | NUR ---
DR. HIDALGO WAS CALLED FOR EVUALTION OF PT FOR [id number]. DR. GUZMAN OR DR. FIGUEROA TO COME TODAY
--- NOTE | 2020-10-21 07:04 | NUR ---
DIETARY CALLED FOR SAFETY TRAY.
--- NOTE | 2020-10-21 07:10 | NUR ---
REPORT FROM TRELL ROBERTS
--- NOTE | 2020-10-21 07:15 | NUR ---
REPORT GIVEN TO ALEJANDRA INGRAM FOR CONTINUING CARE
--- NOTE | 2020-10-21 07:40 | NUR ---
Patient sitting up street clothes and using personal cell phone. made PT aware SI precautions & protocol to remove all personal items. Security called to bedside for wanding.
--- NOTE | 2020-10-21 08:05 | NUR ---
Patient given hospital breakfast on safety tray.
--- NOTE | 2020-10-21 09:04 | NUR ---
PT sitting up in bed, requesting a TV to watch footbal. I made PT aware there is no TV available.
--- NOTE | 2020-10-21 11:20 | NUR ---
Patient A&Ox4, report Nausea with emesis. made Dr. Yañez aware
--- NOTE | 2020-10-21 11:30 | NUR ---
ER Dr. Hamilton at bedside examining patient.
[2020-10-21] MEDS ORDERED: ONDANSETRON 4 MG ODT TAB PO ONE (12:00)
--- NOTE | 2020-10-21 12:15 | NUR ---
Patient sleeping in hospital bed in room 5. supervisor keymodule assembly at BS.
--- NOTE | 2020-10-21 14:20 | NUR ---
Patient A&Ox4, reports feeling ready to eat lunch, no nausea at this time.
--- NOTE | 2020-10-21 14:30 | NUR ---
HOSPITAL LUNCH BROUGHT TO BS ON SAFETY TRAY
--- NOTE | 2020-10-21 15:15 | NUR ---
Pt ambulatory to bathroom with sitter.
--- NOTE | 2020-10-21 15:30 | NUR ---
Pt requesting ativan, made Dr. Yañez aware.
--- NOTE | 2020-10-21 16:30 | NUR ---
PT RESTING IN [facility]
--- NOTE | 2020-10-21 17:05 | NUR ---
PT A&Ox4, sitting up in [facility]. Hospital dinner on safety tray brought to bedside. Sitter at BS
--- NOTE | 2020-10-21 19:13 | NUR ---
Report to Adrián ROBERTS
--- NOTE | 2020-10-21 20:00 | NUR ---
PT RESTING IN ED BED COMFORTABLY WITH SITTER AT BEDSIDE. PT DENIES ANY COMPLAINT AT THIS TIME. PT CALM AND COOPERATIVE.
--- NOTE | 2020-10-21 21:00 | NUR ---
PT REQUESTED SLEEPING PILL TO HELP HIM SLEEP IN BUSY/NOISY ER. PT CLAIMS HE IS UNABLE TO SLEEP WITH PERSISTENT NOISE WITHOUT SLEEPING AID.
[2020-10-21] MEDS ORDERED: PANTOPRAZOLE SODIUM 40 MG TAB PO ONE (21:15)
[2020-10-21] MEDS ORDERED: TEMAZEPAM 15 MG CAPSULE PO PRN (21:15)
[2020-10-21] MEDS ORDERED: TEMAZEPAM 15 MG CAPSULE ONE (21:23)
--- NOTE | 2020-10-21 21:24 | NUR ---
PT MEDICATED PER REQUEST.
--- NOTE | 2020-10-21 22:00 | NUR ---
PT RESTING IN ED BED COMFORTABLY WITH SITTER AT BEDSIDE. PT DENIES ANY COMPLAINT AT THIS TIME. PT CALM AND COOPERATIVE.
--- NOTE | 2020-10-22 | NUR ---
PT GIVEN SANDWICH, JUICE SNACK AT REQUEST. PT USED RESTROOM ON OWN ACCORD. PT COOPERATIVE, THANKFUL FOR SNACK. PT APPRECIATIVE OF STAFF
--- NOTE | 2020-10-22 02:00 | NUR ---
PT RESTING IN ED BED COMFORTABLY WITH SITTER AT BEDSIDE. PT DENIES ANY COMPLAINT AT THIS TIME. PT CALM AND COOPERATIVE.
--- NOTE | 2020-10-22 03:15 | NUR ---
PT GIVEN SNACK OF PUDDING CUP, JELLO, DECAF COFFEE AND WATER PER REQUEST.
--- NOTE | 2020-10-22 04:00 | NUR ---
PT RESTING IN ED BED COMFORTABLY WITH SITTER AT BEDSIDE. PT DENIES ANY COMPLAINT AT THIS TIME. PT CALM AND COOPERATIVE. PT VSS
--- NOTE | 2020-10-22 06:33 | NUR ---
PT RESTING IN ED BED COMFORTABLY. NO DISTRESS AT THIS TIME. PT DENIES ANY NEW COMPLAINT AT THIS TIME. PT COOPERATIVE AND CALM AT THIS TIME.
--- NOTE | 2020-10-22 06:55 | NUR ---
Report received from ALEJANDRA Sampson for continuation of care. Patient is easily woken from sleep. Patient has no complaints at this time and denies suicidal ideation.
--- NOTE | 2020-10-22 06:55 | NUR ---
REPORT GIVEN TO ALEJANDRA MENDOZA. ALL CARE ENDORSED.
--- NOTE | 2020-10-22 08:00 | NUR ---
Breakfast tray provided.
--- NOTE | 2020-10-22 12:17 | NUR ---
DR. ROBLES HERE TO EXAMINE PT
--- NOTE | 2020-10-22 12:20 | NUR ---
Dr. Meneses in to see patient.
[2020-10-22 12:45] VITALS: BP_SYST 137
--- NOTE | 2020-10-22 12:45 | NUR ---
Patient given written and verbal discharge instructions and verbalizes understanding. ER MD discussed with patient the results and treatment provided. Patient in stable condition. ID arm band removed. Patient educated on pain management and to follow up with PMD. Pain Scale 0/10. Opportunity for questions provided and answered. Medication side effect fact sheet provided.
--- NOTE | 2020-10-22 12:50 | NUR ---
After cleaning room, book for 12 steps and empty bottle of hard liquor found in shoe box. Belongings were returned to patient while he was waiting for taxi ride.
== END 2020-10-22 12:45 | disposition home or self-care (01) ==
LOC: SED 13:05
DX: R45.81 Low self-esteem (principal); I10 Essential (primary) hypertension; F41.9 Anxiety disorder, unspecified; K21.9 Gastro-esophageal reflux disease without esophagitis; F32.9 Major depressive disorder, single episode, unspecified; Z72.89 Other problems related to lifestyle; Z79.899 Other long term (current) drug therapy; Z20.828 Contact with and (suspected) exposure to other viral communicable diseases
CPT/HCPCS: 36415; 71045; 80053; 80307; 81000; 85025; 87426; 93005; 99285; G0480; G0481; G0482; Q0162